=== PATIENT | male | born 1970 | race African-American/Black ===

== ENCOUNTER 2021-12-17 14:21 | Inpatient (IN) | payer BC, OTHER, MEDICAID ==
[~2021-12-17] VITALS: Ht 195.6 cm; Wt 84.6 kg
[2021-12-17 14:34] VITALS: BP_SYST 104
[2021-12-17 15:41] LABS: BILIRUBIN,URINE NEGATIVE (NEGATIVE); BLOOD, URINE 1+ (NEGATIVE); COLOR,URINE YELLOW (YELLOW); GLUCOSE,URINE NEGATIVE (NEGATIVE); KETONES,URINE NEGATIVE (NEGATIVE); NITRITE, URINE NEGATIVE (NEGATIVE); PH,URINE >=9.0 (5.0-8.0); PROTEIN URINE 1+ (NEGATIVE)
[2021-12-17 15:42] LABS: BASOPHILS # (AUTO) 0.1 K/uL (0.0-0.2); BASOPHILS % (AUTO) 0.8 % (0.0-2.0); EOSINOPHILS # (AUTO) 0.4 K/uL (0.0-0.4); HEMOGLOBIN 11.6 g/dL (14.0-18.0); LYMPHOCYTES # (AUTO) 1.6 K/uL (1.0-5.5); LYMPHOCYTES % (AUTO) 18.5 % (20.5-51.5); MEAN CORPUSCULAR HEMOGLOBIN 27 pg (27-31); MEAN CORPUSCULAR HGB CONC 33 % (32-36); MEAN CORPUSCULAR VOLUME 82 fL (79.0-98.0); MONOCYTES # (AUTO) 0.8 K/uL (0.0-1.0); MONOCYTES % (AUTO) 9.6 % (1.7-9.3); NEUTROPHILS # (AUTO) 5.7 K/uL (1.8-7.7); NEUTROPHILS % (AUTO) 66.1 % (40.0-70.0); PLATELET COUNT (AUTO) 279 K/uL (130-430); RED BLOOD CELL COUNT(AUTO) 4.27 MIL/uL (4.2-6.2); RED CELL DISTRIBUTION WIDTH 13.7 % (9.0-15.0); WHITE BLOOD COUNT (AUTO) 8.7 K/uL (4.8-10.8)
[2021-12-17 15:55] LABS: CLARITY/URINE HAZY (CLEAR); LEUKOCYTE ESTERASE ,URINE TRACE (NEGATIVE)
[2021-12-17 15:56] LABS: BARBITURATE, URINE NEGATIVE (NEG <=200); BENZODIAZEPINE, URINE NEGATIVE (NEG <=150); CANNABINOID, URINE NEGATIVE (NEG <=50); COCAINE, URINE NEGATIVE (NEG <=150); METHAMPHETAMINES SCREEN,URINE NEGATIVE (NEG <=500); OPIATE, URINE NEGATIVE (NEG <=100); PHENCYCLIDINE SCREEN,URINE NEGATIVE (NEG <=25); UR TRICYCLIC ANTIDEPRESSANTS NEGATIVE (NEG <=300); URINE AMPHETAMINE NEGATIVE (NEG <=500); URINE METHADONE NEGATIVE (NEG <=200); URINE OXYCODONE SCREEN NEGATIVE (NEG <=100); URINE PROPOXYPHENE SCREEN NEGATIVE (NEG <=300)
[2021-12-17 15:58] LABS: BACTERIA,URINE MODERATE /HPF (None Seen); CALCIUM OXALATE CRYSTALS,UR 0-10 /HPF (None Seen); MUCUS,URINE None Seen /LPF (None Seen); RBC,URINE 0-3 /HPF (0-3); TRIPLE PHOSPHATE CRYSTAL,UR 30-50 /HPF (None Seen)
[2021-12-17 15:59] LABS: CALCIUM 8.9 mg/dL (8.4-11.0); CREATININE 0.91 mg/dL (0.55-1.30); POTASSIUM 4.5 mmol/L (3.5-5.1)
[2021-12-17 16:11] LABS: ALBUMIN 3.2 g/dL (3.4-4.8); TOTAL BILIRUBIN 0.3 mg/dL (0.0-1.0)
[2021-12-17] MEDS ORDERED: cefTRIAXone 1 GM in D5W 50 ML IV ONE (16:30)
[2021-12-17] MEDS ORDERED: ACET-73 PO (16:57)
[2021-12-17] MEDS ORDERED: ALBU2.5V7 INH (16:57)
[2021-12-17] MEDS ORDERED: ASPI-1155 PO (16:57)
[2021-12-17] MEDS ORDERED: POLY119P15 PO (17:24)
[2021-12-17] MEDS ORDERED: INSU100V (17:24)
[2021-12-17] MEDS ORDERED: SENN-234 PO (17:24)
[2021-12-17] MEDS ORDERED: IPRA3AMP19 INH (17:24)
[2021-12-17] MEDS ORDERED: FAMO-268 PO (17:24)
[2021-12-17] MEDS ORDERED: COR25 PO (17:24)
[2021-12-17] MEDS ORDERED: ONDA4TAB11 PO (17:24)
[2021-12-17] MEDS ORDERED: LISI-652 PO (17:24)
[2021-12-17] MEDS ORDERED: LACT10SO66 PO (17:24)
[2021-12-17] MEDS ORDERED: HEPA500015 SQ (17:24)
[2021-12-17] MEDS ORDERED: MULT-300 PO (17:24)
[2021-12-17] MEDS ORDERED: GABA-529 PO (17:24)
[2021-12-17] MEDS ORDERED: METF-380 PO (17:24)
[2021-12-17] MEDS ORDERED: LIP20 PO (17:24)
[2021-12-17] MEDS ORDERED: BISA10SU61 RC (17:24)
[2021-12-17] MEDS ORDERED: LACT1CAP25 PO (17:24)
[2021-12-17] MEDS ORDERED: COLL100 PO (17:24)
[2021-12-17] MEDS ORDERED: CARB15DR88 BOTH EYES (17:24)
[2021-12-17] MEDS ORDERED: DIPH-4 PO (17:24)
[2021-12-17] MEDS ORDERED: MODA200T48 PO (17:24)
[2021-12-17] MEDS ORDERED: LEVE1000 PO (17:24)
[2021-12-17] MEDS ORDERED: INSU100V9 SQ (17:24)
[2021-12-17] MEDS ORDERED: SCOP1PAT TD (17:24)
[2021-12-17] MEDS ORDERED: cefTRIAXone 1 GM VIAL ONE (17:30)
[2021-12-17 18:00] VITALS: BP_SYST 133
[2021-12-17] MEDS ORDERED: D5W 1,000 ML IV PRN ×2 (19:15)
[2021-12-17] MEDS ORDERED: DEXTROSE 50% JECT 50 ML DISP.SYRIN IVP PRN (19:15)
[2021-12-17] MEDS ORDERED: GLUCOSE (DEXTROSE) ORAL GEL -Adults PO PRN ×2 (19:15)
[2021-12-17 20:00] VITALS: BP_SYST 117
[2021-12-17] MEDS ORDERED: cefTRIAXone 1 GM IVPB PREMIX 50 ML IV ONE (22:14)
[2021-12-17] MEDS: levETIRAcetam 500 MG TABLET PO SCH (22:21)
[2021-12-17] MEDS: FAMOTIDINE 20 MG TABLET PO SCH (22:21)
[2021-12-17] MEDS: CARVEDILOL 25 MG TABLET (COREG) PO SCH (22:22)
[2021-12-17] MEDS: HEPARIN SODIUM,PORCINE 5,000 UNITS/ML VIAL SUBCUT SCH (22:50)
[2021-12-18 07:04] LABS: BASOPHILS # (AUTO) 0.1 K/uL (0.0-0.2); EOSINOPHILS # (AUTO) 0.3 K/uL (0.0-0.4); EOSINOPHILS % (AUTO) 3.6 % (0.0-4.0); HEMATOCRIT 35.4 % (36-54); HEMOGLOBIN 11.7 g/dL (14.0-18.0); LYMPHOCYTES # (AUTO) 1.6 K/uL (1.0-5.5); LYMPHOCYTES % (AUTO) 16.7 % (20.5-51.5); MEAN CORPUSCULAR HEMOGLOBIN 27 pg (27-31); MEAN CORPUSCULAR HGB CONC 33 % (32-36); MEAN CORPUSCULAR VOLUME 82 fL (79.0-98.0); MONOCYTES # (AUTO) 0.8 K/uL (0.0-1.0); MONOCYTES % (AUTO) 8.6 % (1.7-9.3); NEUTROPHILS # (AUTO) 6.8 K/uL (1.8-7.7); NEUTROPHILS % (AUTO) 70.1 % (40.0-70.0); PLATELET COUNT (AUTO) 275 K/uL (130-430); RED BLOOD CELL COUNT(AUTO) 4.31 MIL/uL (4.2-6.2); WHITE BLOOD COUNT (AUTO) 9.8 K/uL (4.8-10.8)
[2021-12-18 07:34] LABS: CALCIUM 9.1 mg/dL (8.4-11.0); CREATININE 0.86 mg/dL (0.55-1.30); PHOSPHORUS 4.2 mg/dL (2.7-4.5); POTASSIUM 4.4 mmol/L (3.5-5.1)
[2021-12-18 08:00] VITALS: BP_SYST 138
[2021-12-18] MEDS: ASPIRIN 81 MG TAB.CHEW PO SCH (10:24)
[2021-12-18] MEDS: MODAFINIL 100 MG TABLET (PROVIGIL) PO SCH (10:24)
[2021-12-18] MEDS: levETIRAcetam 500 MG TABLET PO SCH ×2 (10:24→22:09)
[2021-12-18] MEDS: FAMOTIDINE 20 MG TABLET PO SCH ×2 (10:25→22:09)
[2021-12-18] MEDS: CARVEDILOL 25 MG TABLET (COREG) PO SCH ×2 (10:25→22:09)
[2021-12-18] MEDS: ATORVASTATIN 20 MG TABLET PO SCH (10:25)
[2021-12-18] MEDS: HEPARIN SODIUM,PORCINE 5,000 UNITS/ML VIAL SUBCUT SCH ×2 (10:31→22:11)
[2021-12-18 12:25] VITALS: BP_SYST 131
[2021-12-18] MEDS: SCOPOLAMINE HYDROBROMIDE 1 MG PATCH .72 H (TRANSDERM-SCOP) TD SCH (12:30)
[2021-12-18] MEDS: ONDANSETRON HCL 4 MG/2 ML VIAL IVP PRN (17:29)
[2021-12-18] MEDS: cefTRIAXone 1 GM in D5W 50 ML IV SCH (17:30)
[2021-12-18 17:42] VITALS: BP_SYST 132
[2021-12-18 20:00] VITALS: BP_SYST 120
[2021-12-19] VITALS: BP_SYST 108
[2021-12-19 06:43] LABS: EOSINOPHILS # (AUTO) 0.3 K/uL (0.0-0.4); EOSINOPHILS % (AUTO) 3.6 % (0.0-4.0); HEMATOCRIT 34.5 % (36-54); HEMOGLOBIN 11.2 g/dL (14.0-18.0); LYMPHOCYTES # (AUTO) 1.8 K/uL (1.0-5.5); LYMPHOCYTES % (AUTO) 22.6 % (20.5-51.5); MEAN CORPUSCULAR HEMOGLOBIN 27 pg (27-31); MEAN CORPUSCULAR HGB CONC 33 % (32-36); MEAN CORPUSCULAR VOLUME 83 fL (79.0-98.0); MONOCYTES # (AUTO) 0.8 K/uL (0.0-1.0); MONOCYTES % (AUTO) 10.4 % (1.7-9.3); PLATELET COUNT (AUTO) 297 K/uL (130-430); RED BLOOD CELL COUNT(AUTO) 4.16 MIL/uL (4.2-6.2); RED CELL DISTRIBUTION WIDTH 14.3 % (9.0-15.0); WHITE BLOOD COUNT (AUTO) 7.9 K/uL (4.8-10.8)
[2021-12-19 07:19] LABS: ALBUMIN 3.2 g/dL (3.4-4.8); CALCIUM 9.2 mg/dL (8.4-11.0); CREATININE 0.95 mg/dL (0.55-1.30); POTASSIUM 3.9 mmol/L (3.5-5.1); THYROID STIMULATING HORMONE 0.09 uIu/mL (0.36-3.74); TOTAL BILIRUBIN 0.2 mg/dL (0.0-1.0)
[2021-12-19 08:00] VITALS: BP_SYST 127
[2021-12-19 08:29] LABS: BASOPHILS % (AUTO) 0.2 % (0.0-2.0); NEUTROPHILS % (AUTO) 63.2 % (40.0-70.0)
[2021-12-19] MEDS: MODAFINIL 100 MG TABLET (PROVIGIL) PO SCH (09:00)
[2021-12-19] MEDS: HEPARIN SODIUM,PORCINE 5,000 UNITS/ML VIAL SUBCUT SCH ×2 (09:00→21:31)
[2021-12-19] MEDS: ATORVASTATIN 20 MG TABLET PO SCH (09:00)
[2021-12-19] MEDS: ASPIRIN 81 MG TAB.CHEW PO SCH (09:00)
[2021-12-19] MEDS: CARVEDILOL 25 MG TABLET (COREG) PO SCH ×2 (09:00→21:26)
[2021-12-19] MEDS: FAMOTIDINE 20 MG TABLET PO SCH ×2 (09:00→21:26)
[2021-12-19] MEDS: levETIRAcetam 500 MG TABLET PO SCH ×2 (09:00→21:26)
[2021-12-19 12:00] VITALS: BP_SYST 119
[2021-12-19 16:00] VITALS: BP_SYST 121
[2021-12-19] MEDS: cefTRIAXone 1 GM in D5W 50 ML IV SCH (17:34)
[2021-12-19 20:00] VITALS: BP_SYST 122
[2021-12-19] MEDS: HALOPERIDOL 1 MG TABLET (HALDOL) PO PRN (21:25)
[2021-12-20] VITALS: BP_SYST 106
[2021-12-20 08:20] VITALS: BP_SYST 121
[2021-12-20] MEDS: ASPIRIN 81 MG TAB.CHEW PO SCH (09:15)
[2021-12-20] MEDS: MODAFINIL 100 MG TABLET (PROVIGIL) PO SCH (09:15)
[2021-12-20] MEDS: ATORVASTATIN 20 MG TABLET PO SCH (09:16)
[2021-12-20] MEDS: CARVEDILOL 25 MG TABLET (COREG) PO SCH ×2 (09:16→20:48)
[2021-12-20] MEDS: levETIRAcetam 500 MG TABLET PO SCH ×2 (09:16→20:48)
[2021-12-20] MEDS: FAMOTIDINE 20 MG TABLET PO SCH ×2 (09:16→20:48)
[2021-12-20] MEDS: HEPARIN SODIUM,PORCINE 5,000 UNITS/ML VIAL SUBCUT SCH ×2 (09:19→20:51)
[2021-12-20 11:04] LABS: EOSINOPHILS # (AUTO) 0.5 K/uL (0.0-0.4)
[2021-12-20 11:15] LABS: BASOPHILS # (AUTO) 0.1 K/uL (0.0-0.2); BASOPHILS % (AUTO) 0.9 % (0.0-2.0); EOSINOPHILS % (AUTO) 6.3 % (0.0-4.0); HEMATOCRIT 36.6 % (36-54); HEMOGLOBIN 12.2 g/dL (14.0-18.0); LYMPHOCYTES # (AUTO) 1.7 K/uL (1.0-5.5); LYMPHOCYTES % (AUTO) 21.1 % (20.5-51.5); MEAN CORPUSCULAR HEMOGLOBIN 28 pg (27-31); MEAN CORPUSCULAR HGB CONC 33 % (32-36); MEAN CORPUSCULAR VOLUME 82 fL (79.0-98.0); MONOCYTES # (AUTO) 0.7 K/uL (0.0-1.0); MONOCYTES % (AUTO) 9.3 % (1.7-9.3); NEUTROPHILS # (AUTO) 4.9 K/uL (1.8-7.7); NEUTROPHILS % (AUTO) 62.4 % (40.0-70.0); PLATELET COUNT (AUTO) 290 K/uL (130-430); RED BLOOD CELL COUNT(AUTO) 4.44 MIL/uL (4.2-6.2); RED CELL DISTRIBUTION WIDTH 14.1 % (9.0-15.0); WHITE BLOOD COUNT (AUTO) 7.9 K/uL (4.8-10.8)
[2021-12-20 11:17] LABS: CALCIUM 9.1 mg/dL (8.4-11.0); CREATININE 0.97 mg/dL (0.55-1.30); PHOSPHORUS 3.8 mg/dL (2.7-4.5); POTASSIUM 3.8 mmol/L (3.5-5.1)
[2021-12-20] MEDS: levoFLOXacin 500 MG TABLET PO SCH (11:37)
[2021-12-20 12:01] VITALS: BP_SYST 138
[2021-12-20 16:15] VITALS: BP_SYST 130
[2021-12-20] MEDS: INSULIN LISPRO SLIDING SCALE 100 UNITS/ML VIAL (humaLOG) SUBCUT PRN (21:11)
[2021-12-21 01:22] VITALS: BP_SYST 110
[2021-12-21 08:15] VITALS: BP_SYST 131
[2021-12-21] MEDS: FAMOTIDINE 20 MG TABLET PO SCH ×2 (08:55→20:51)
[2021-12-21] MEDS: CARVEDILOL 25 MG TABLET (COREG) PO SCH ×2 (08:55→20:50)
[2021-12-21] MEDS: MODAFINIL 100 MG TABLET (PROVIGIL) PO SCH (08:59)
[2021-12-21] MEDS: ASPIRIN 81 MG TAB.CHEW PO SCH (09:00)
[2021-12-21] MEDS: levETIRAcetam 500 MG TABLET PO SCH ×2 (09:00→20:50)
[2021-12-21] MEDS: ATORVASTATIN 20 MG TABLET PO SCH (09:00)
[2021-12-21] MEDS: HEPARIN SODIUM,PORCINE 5,000 UNITS/ML VIAL SUBCUT SCH ×2 (09:03→20:55)
[2021-12-21] MEDS: levoFLOXacin 500 MG TABLET PO SCH (09:04)
[2021-12-21] MEDS: SCOPOLAMINE HYDROBROMIDE 1 MG PATCH .72 H (TRANSDERM-SCOP) TD SCH (11:09)
[2021-12-21 12:26] VITALS: BP_SYST 120
[2021-12-21 16:02] VITALS: BP_SYST 141
[2021-12-21 20:00] VITALS: BP_SYST 138
[2021-12-21] MEDS: HALOPERIDOL 1 MG TABLET (HALDOL) PO PRN (21:15)
[2021-12-22 02:00] VITALS: BP_SYST 124
[2021-12-22 08:00] VITALS: BP_SYST 127
[2021-12-22] MEDS: MODAFINIL 100 MG TABLET (PROVIGIL) PO SCH (09:13)
[2021-12-22] MEDS: levETIRAcetam 500 MG TABLET PO SCH ×2 (09:13→21:00)
[2021-12-22] MEDS: levoFLOXacin 500 MG TABLET PO SCH (09:13)
[2021-12-22] MEDS: ASPIRIN 81 MG TAB.CHEW PO SCH (09:13)
[2021-12-22] MEDS: ATORVASTATIN 20 MG TABLET PO SCH (09:14)
[2021-12-22] MEDS: CARVEDILOL 25 MG TABLET (COREG) PO SCH ×2 (09:14→21:00)
[2021-12-22] MEDS: FAMOTIDINE 20 MG TABLET PO SCH ×2 (09:14→21:00)
[2021-12-22] MEDS: HEPARIN SODIUM,PORCINE 5,000 UNITS/ML VIAL SUBCUT SCH (09:16)
[2021-12-22] MEDS: INSULIN LISPRO SLIDING SCALE 100 UNITS/ML VIAL (humaLOG) SUBCUT PRN ×2 (12:15→23:13)
[2021-12-22 15:58] VITALS: BP_SYST 127
[2021-12-22 20:00] VITALS: BP_SYST 135
[2021-12-23] MEDS ORDERED: SCOPOLAMINE HYDROBROMIDE 1 MG PATCH .72 H (TRANSDERM-SCOP) TD SCH (08:55)
[2021-12-23] MEDS: MODAFINIL 100 MG TABLET (PROVIGIL) PO SCH (09:59)
[2021-12-23] MEDS: CARVEDILOL 25 MG TABLET (COREG) PO SCH ×2 (10:00→22:47)
[2021-12-23] MEDS: FAMOTIDINE 20 MG TABLET PO SCH ×2 (10:00→22:31)
[2021-12-23] MEDS: levoFLOXacin 500 MG TABLET PO SCH (10:01)
[2021-12-23] MEDS: ASPIRIN 81 MG TAB.CHEW PO SCH (10:01)
[2021-12-23] MEDS: ATORVASTATIN 20 MG TABLET PO SCH (10:01)
[2021-12-23] MEDS: levETIRAcetam 500 MG TABLET PO SCH ×2 (10:01→22:32)
[2021-12-23] MEDS: HEPARIN SODIUM,PORCINE 5,000 UNITS/ML VIAL SUBCUT SCH ×2 (10:04→22:35)
[2021-12-23 12:57] VITALS: BP_SYST 132
[2021-12-23 16:13] VITALS: BP_SYST 133
[2021-12-23 20:00] VITALS: BP_SYST 114
[2021-12-23] MEDS: HALOPERIDOL 1 MG TABLET (HALDOL) PO PRN (22:31)
[2021-12-24 00:21] VITALS: BP_SYST 128
[2021-12-24 08:39] VITALS: BP_SYST 112
[2021-12-24] MEDS: SCOPOLAMINE HYDROBROMIDE 1 MG PATCH .72 H (TRANSDERM-SCOP) TD SCH (09:38)
[2021-12-24] MEDS: MODAFINIL 100 MG TABLET (PROVIGIL) PO SCH (09:38)
[2021-12-24] MEDS: ASPIRIN 81 MG TAB.CHEW PO SCH (09:38)
[2021-12-24] MEDS: levoFLOXacin 500 MG TABLET PO SCH (09:39)
[2021-12-24] MEDS: CARVEDILOL 25 MG TABLET (COREG) PO SCH ×2 (09:39→21:04)
[2021-12-24] MEDS: levETIRAcetam 500 MG TABLET PO SCH ×2 (09:40→21:04)
[2021-12-24] MEDS: FAMOTIDINE 20 MG TABLET PO SCH (09:42)
[2021-12-24] MEDS: ATORVASTATIN 20 MG TABLET PO SCH (09:47)
[2021-12-24] MEDS: HEPARIN SODIUM,PORCINE 5,000 UNITS/ML VIAL SUBCUT SCH ×2 (09:50→21:23)
[2021-12-24 12:00] VITALS: BP_SYST 121
[2021-12-24 16:00] VITALS: BP_SYST 122
[2021-12-24] MEDS: PANTOPRAZOLE SODIUM 40 MG TAB PO SCH (21:04)
[2021-12-24 21:06] VITALS: BP_SYST 115
[2021-12-24] MEDS: INSULIN LISPRO SLIDING SCALE 100 UNITS/ML VIAL (humaLOG) SUBCUT PRN (21:16)
[2021-12-25 00:17] VITALS: BP_SYST 120
[2021-12-25 08:03] VITALS: BP_SYST 118
[2021-12-25] MEDS: CARVEDILOL 25 MG TABLET (COREG) PO SCH ×2 (09:12→21:03)
[2021-12-25] MEDS: PANTOPRAZOLE SODIUM 40 MG TAB PO SCH ×2 (09:12→21:02)
[2021-12-25] MEDS: levETIRAcetam 500 MG TABLET PO SCH ×2 (09:12→21:01)
[2021-12-25] MEDS: MODAFINIL 100 MG TABLET (PROVIGIL) PO SCH (09:12)
[2021-12-25] MEDS: ASPIRIN 81 MG TAB.CHEW PO SCH (09:12)
[2021-12-25] MEDS: ATORVASTATIN 20 MG TABLET PO SCH (09:12)
[2021-12-25] MEDS: HEPARIN SODIUM,PORCINE 5,000 UNITS/ML VIAL SUBCUT SCH ×2 (09:16→21:28)
[2021-12-25] MEDS: levoFLOXacin 500 MG TABLET PO SCH (09:17)
[2021-12-25 12:59] VITALS: BP_SYST 114
[2021-12-25 17:39] VITALS: BP_SYST 113
[2021-12-25 20:59] VITALS: BP_SYST 129
[2021-12-26 01:22] VITALS: BP_SYST 124
[2021-12-26 07:30] VITALS: BP_SYST 133
[2021-12-26] MEDS: MODAFINIL 100 MG TABLET (PROVIGIL) PO SCH (08:43)
[2021-12-26] MEDS: levETIRAcetam 500 MG TABLET PO SCH ×2 (08:43→22:20)
[2021-12-26] MEDS: PANTOPRAZOLE SODIUM 40 MG TAB PO SCH ×2 (08:43→22:21)
[2021-12-26] MEDS: ASPIRIN 81 MG TAB.CHEW PO SCH (08:44)
[2021-12-26] MEDS: CARVEDILOL 25 MG TABLET (COREG) PO SCH ×2 (08:45→22:40)
[2021-12-26] MEDS: ATORVASTATIN 20 MG TABLET PO SCH (08:45)
[2021-12-26] MEDS: HEPARIN SODIUM,PORCINE 5,000 UNITS/ML VIAL SUBCUT SCH ×2 (08:50→22:20)
[2021-12-26] MEDS: levoFLOXacin 500 MG TABLET PO SCH (09:04)
[2021-12-26 12:30] VITALS: BP_SYST 120
[2021-12-26 16:22] VITALS: BP_SYST 111
[2021-12-26 20:00] VITALS: BP_SYST 117
[2021-12-27 01:47] VITALS: BP_SYST 109
[2021-12-27] MEDS: ASPIRIN 81 MG TAB.CHEW PO SCH (09:00)
[2021-12-27] MEDS: MODAFINIL 100 MG TABLET (PROVIGIL) PO SCH (09:00)
[2021-12-27] MEDS: levETIRAcetam 500 MG TABLET PO SCH ×2 (09:01→21:17)
[2021-12-27] MEDS: ATORVASTATIN 20 MG TABLET PO SCH (09:03)
[2021-12-27] MEDS: CARVEDILOL 25 MG TABLET (COREG) PO SCH ×2 (09:03→21:18)
[2021-12-27] MEDS: PANTOPRAZOLE SODIUM 40 MG TAB PO SCH ×2 (09:03→21:18)
[2021-12-27] MEDS: HEPARIN SODIUM,PORCINE 5,000 UNITS/ML VIAL SUBCUT SCH ×2 (09:05→21:21)
[2021-12-27 09:07] VITALS: BP_SYST 128
[2021-12-27] MEDS: SCOPOLAMINE HYDROBROMIDE 1 MG PATCH .72 H (TRANSDERM-SCOP) TD SCH (09:17)
[2021-12-27 11:11] VITALS: BP_SYST 112
[2021-12-27] MEDS: INSULIN LISPRO SLIDING SCALE 100 UNITS/ML VIAL (humaLOG) SUBCUT PRN (14:31)
[2021-12-27 16:01] VITALS: BP_SYST 117
[2021-12-27 23:14] VITALS: BP_SYST 120
[2021-12-28 00:21] VITALS: BP_SYST 122
[2021-12-28] MEDS: MODAFINIL 100 MG TABLET (PROVIGIL) PO SCH (10:10)
[2021-12-28] MEDS: ATORVASTATIN 20 MG TABLET PO SCH (10:10)
[2021-12-28] MEDS: ASPIRIN 81 MG TAB.CHEW PO SCH (10:10)
[2021-12-28] MEDS: levETIRAcetam 500 MG TABLET PO SCH ×2 (10:11→20:27)
[2021-12-28] MEDS: HALOPERIDOL 1 MG TABLET (HALDOL) PO PRN (10:11)
[2021-12-28] MEDS: PANTOPRAZOLE SODIUM 40 MG TAB PO SCH ×2 (10:12→20:27)
[2021-12-28] MEDS: CARVEDILOL 25 MG TABLET (COREG) PO SCH ×2 (10:12→20:27)
[2021-12-28] MEDS: HEPARIN SODIUM,PORCINE 5,000 UNITS/ML VIAL SUBCUT SCH ×2 (10:24→20:30)
[2021-12-28] MEDS ORDERED: HALOPERIDOL 1 MG TABLET (HALDOL) PO ONE (10:45)
[2021-12-28 11:38] VITALS: BP_SYST 120
[2021-12-28 15:27] VITALS: BP_SYST 150
[2021-12-28 20:00] VITALS: BP_SYST 146
[2021-12-29 00:24] VITALS: BP_SYST 118
[2021-12-29] MEDS: PANTOPRAZOLE SODIUM 40 MG TAB PO SCH ×2 (10:21→20:56)
[2021-12-29] MEDS: CARVEDILOL 25 MG TABLET (COREG) PO SCH ×2 (10:21→20:56)
[2021-12-29] MEDS: MODAFINIL 100 MG TABLET (PROVIGIL) PO SCH (10:22)
[2021-12-29] MEDS: levETIRAcetam 500 MG TABLET PO SCH ×2 (10:22→20:56)
[2021-12-29] MEDS: HALOPERIDOL 1 MG TABLET (HALDOL) PO SCH ×2 (10:22→20:56)
[2021-12-29] MEDS: ASPIRIN 81 MG TAB.CHEW PO SCH (10:22)
[2021-12-29] MEDS: ATORVASTATIN 20 MG TABLET PO SCH (10:23)
[2021-12-29] MEDS: HEPARIN SODIUM,PORCINE 5,000 UNITS/ML VIAL SUBCUT SCH ×2 (10:25→20:58)
[2021-12-29 12:00] VITALS: BP_SYST 119
[2021-12-29] MEDS: INSULIN LISPRO SLIDING SCALE 100 UNITS/ML VIAL (humaLOG) SUBCUT PRN (12:54)
[2021-12-29 15:34] VITALS: BP_SYST 151
[2021-12-29 15:38] VITALS: BP_SYST 110
[2021-12-29 20:39] VITALS: BP_SYST 128
[2021-12-30 00:43] VITALS: BP_SYST 112
[2021-12-30] MEDS: INSULIN LISPRO SLIDING SCALE 100 UNITS/ML VIAL (humaLOG) SUBCUT PRN ×2 (06:05→21:41)
[2021-12-30 08:00] VITALS: BP_SYST 125
[2021-12-30] MEDS: levETIRAcetam 500 MG TABLET PO SCH ×2 (08:57→21:08)
[2021-12-30] MEDS: PANTOPRAZOLE SODIUM 40 MG TAB PO SCH ×2 (08:57→21:08)
[2021-12-30] MEDS: ASPIRIN 81 MG TAB.CHEW PO SCH (08:57)
[2021-12-30] MEDS: MODAFINIL 100 MG TABLET (PROVIGIL) PO SCH (08:57)
[2021-12-30] MEDS: CARVEDILOL 25 MG TABLET (COREG) PO SCH ×2 (08:58→21:09)
[2021-12-30] MEDS: HALOPERIDOL 1 MG TABLET (HALDOL) PO SCH ×2 (08:58→21:08)
[2021-12-30] MEDS: ATORVASTATIN 20 MG TABLET PO SCH (08:58)
[2021-12-30] MEDS: SCOPOLAMINE HYDROBROMIDE 1 MG PATCH .72 H (TRANSDERM-SCOP) TD SCH (08:59)
[2021-12-30] MEDS: HEPARIN SODIUM,PORCINE 5,000 UNITS/ML VIAL SUBCUT SCH ×2 (09:15→21:12)
[2021-12-30 12:09] VITALS: BP_SYST 113
[2021-12-30 17:50] VITALS: BP_SYST 118
[2021-12-30 20:00] VITALS: BP_SYST 113
[2021-12-31 01:17] VITALS: BP_SYST 106
[2021-12-31] MEDS: INSULIN LISPRO SLIDING SCALE 100 UNITS/ML VIAL (humaLOG) SUBCUT PRN ×2 (06:19→12:46)
[2021-12-31 07:04] LABS: BASOPHILS # (AUTO) 0.1 K/uL (0.0-0.2); BASOPHILS % (AUTO) 1.1 % (0.0-2.0); EOSINOPHILS # (AUTO) 0.6 K/uL (0.0-0.4); EOSINOPHILS % (AUTO) 7.6 % (0.0-4.0); HEMATOCRIT 38.4 % (36-54); HEMOGLOBIN 12.5 g/dL (14.0-18.0); LYMPHOCYTES # (AUTO) 2.1 K/uL (1.0-5.5); LYMPHOCYTES % (AUTO) 27.5 % (20.5-51.5); MEAN CORPUSCULAR HEMOGLOBIN 27 pg (27-31); MEAN CORPUSCULAR HGB CONC 33 % (32-36); MEAN CORPUSCULAR VOLUME 83 fL (79.0-98.0); MONOCYTES # (AUTO) 1.1 K/uL (0.0-1.0); MONOCYTES % (AUTO) 14.5 % (1.7-9.3); NEUTROPHILS # (AUTO) 3.8 K/uL (1.8-7.7); NEUTROPHILS % (AUTO) 49.3 % (40.0-70.0); PLATELET COUNT (AUTO) 245 K/uL (130-430); RED BLOOD CELL COUNT(AUTO) 4.62 MIL/uL (4.2-6.2); RED CELL DISTRIBUTION WIDTH 14.2 % (9.0-15.0); WHITE BLOOD COUNT (AUTO) 7.7 K/uL (4.8-10.8)
[2021-12-31 07:33] LABS: CREATININE 1.1 mg/dL (0.55-1.30); POTASSIUM 3.6 mmol/L (3.5-5.1)
[2021-12-31 08:00] VITALS: BP_SYST 111
[2021-12-31] MEDS ORDERED: HYDR-3917 PO (08:22)
[2021-12-31] MEDS: ATORVASTATIN 20 MG TABLET PO SCH (10:02)
[2021-12-31] MEDS: PANTOPRAZOLE SODIUM 40 MG TAB PO SCH ×2 (10:02→20:56)
[2021-12-31] MEDS: ASPIRIN 81 MG TAB.CHEW PO SCH (10:02)
[2021-12-31] MEDS: MODAFINIL 100 MG TABLET (PROVIGIL) PO SCH (10:03)
[2021-12-31] MEDS: CARVEDILOL 25 MG TABLET (COREG) PO SCH ×2 (10:04→20:56)
[2021-12-31] MEDS: HALOPERIDOL 1 MG TABLET (HALDOL) PO SCH ×2 (10:04→20:56)
[2021-12-31] MEDS: levETIRAcetam 500 MG TABLET PO SCH ×2 (10:05→20:56)
[2021-12-31] MEDS: HEPARIN SODIUM,PORCINE 5,000 UNITS/ML VIAL SUBCUT SCH ×2 (10:20→20:59)
[2021-12-31 12:55] VITALS: BP_SYST 109
[2021-12-31 16:00] VITALS: BP_SYST 110
[2022-01-01 00:30] VITALS: BP_SYST 110
[2022-01-01] MEDS: INSULIN LISPRO SLIDING SCALE 100 UNITS/ML VIAL (humaLOG) SUBCUT PRN (06:23)
[2022-01-01 08:00] VITALS: BP_SYST 111
[2022-01-01] MEDS ORDERED: PANTOPRAZOLE SODIUM 40 MG/VIAL (PROTONIX) IVP ONE (10:00)
[2022-01-01] MEDS ORDERED: ATORVASTATIN 20 MG TABLET GT ONE (10:00)
[2022-01-01] MEDS ORDERED: HALOPERIDOL 1 MG TABLET (HALDOL) GT ONE (10:00)
[2022-01-01] MEDS ORDERED: ASPIRIN 81 MG TAB.CHEW GT ONE (10:00)
[2022-01-01] MEDS ORDERED: levETIRAcetam 500 MG TABLET GT ONE (10:00)
[2022-01-01] MEDS ORDERED: CARVEDILOL 25 MG TABLET (COREG) GT ONE (10:00)
[2022-01-01] MEDS ORDERED: MODAFINIL 100 MG TABLET (PROVIGIL) GT ONE (10:15)
[2022-01-01] MEDS: HEPARIN SODIUM,PORCINE 5,000 UNITS/ML VIAL SUBCUT SCH ×2 (10:48→21:44)
[2022-01-01 12:31] VITALS: BP_SYST 116
[2022-01-01 16:47] VITALS: BP_SYST 119
[2022-01-01] MEDS ORDERED: HALOPERIDOL 1 MG TABLET (HALDOL) GT SCH (21:00)
[2022-01-01] MEDS ORDERED: CARVEDILOL 25 MG TABLET (COREG) GT SCH (21:00)
[2022-01-01] MEDS ORDERED: levETIRAcetam 500 MG TABLET GT SCH (21:00)
[2022-01-01] MEDS: HALOPERIDOL 1 MG TABLET (HALDOL) GT SCH (21:40)
[2022-01-01] MEDS: PANTOPRAZOLE SODIUM 40 MG/VIAL (PROTONIX) IVP SCH (21:41)
[2022-01-01] MEDS: CARVEDILOL 25 MG TABLET (COREG) GT SCH (21:41)
[2022-01-01] MEDS: levETIRAcetam 500 MG TABLET GT SCH (21:41)
[2022-01-01 22:59] VITALS: BP_SYST 113
[2022-01-02 03:06] VITALS: BP_SYST 109
[2022-01-02] MEDS: INSULIN LISPRO SLIDING SCALE 100 UNITS/ML VIAL (humaLOG) SUBCUT PRN ×2 (06:34→11:41)
[2022-01-02 06:37] LABS: CREATININE 0.98 mg/dL (0.55-1.30); POTASSIUM 3.6 mmol/L (3.5-5.1)
[2022-01-02] MEDS ORDERED: ASPIRIN 81 MG TAB.CHEW GT SCH (09:00)
[2022-01-02] MEDS ORDERED: ATORVASTATIN 20 MG TABLET GT SCH (09:00)
[2022-01-02] MEDS: HALOPERIDOL 1 MG TABLET (HALDOL) GT SCH ×2 (09:00→20:42)
[2022-01-02] MEDS: ASPIRIN 81 MG TAB.CHEW GT SCH (09:36)
[2022-01-02] MEDS: MODAFINIL 100 MG TABLET (PROVIGIL) GT SCH (09:36)
[2022-01-02] MEDS: levETIRAcetam 500 MG TABLET GT SCH ×2 (09:37→20:42)
[2022-01-02] MEDS: CARVEDILOL 25 MG TABLET (COREG) GT SCH ×2 (09:38→20:41)
[2022-01-02] MEDS: PANTOPRAZOLE SODIUM 40 MG/VIAL (PROTONIX) IVP SCH ×2 (09:38→20:42)
[2022-01-02] MEDS: ATORVASTATIN 20 MG TABLET GT SCH (09:38)
[2022-01-02] MEDS: SCOPOLAMINE HYDROBROMIDE 1 MG PATCH .72 H (TRANSDERM-SCOP) TD SCH (09:39)
[2022-01-02] MEDS: HEPARIN SODIUM,PORCINE 5,000 UNITS/ML VIAL SUBCUT SCH ×2 (09:45→20:44)
[2022-01-02 10:53] VITALS: BP_SYST 110
[2022-01-02 12:36] VITALS: BP_SYST 109
[2022-01-02 16:50] VITALS: BP_SYST 112
[2022-01-02 19:00] VITALS: BP_SYST 136
[2022-01-02 20:00] VITALS: BP_SYST 136
[2022-01-03 01:31] VITALS: BP_SYST 122
[2022-01-03 08:15] VITALS: BP_SYST 116
[2022-01-03] MEDS: ASPIRIN 81 MG TAB.CHEW GT SCH (09:21)
[2022-01-03] MEDS: MODAFINIL 100 MG TABLET (PROVIGIL) GT SCH (09:22)
[2022-01-03] MEDS: HALOPERIDOL 1 MG TABLET (HALDOL) GT SCH ×2 (09:22→22:14)
[2022-01-03] MEDS: CARVEDILOL 25 MG TABLET (COREG) GT SCH ×2 (09:23→22:15)
[2022-01-03] MEDS: ATORVASTATIN 20 MG TABLET GT SCH (09:23)
[2022-01-03] MEDS: levETIRAcetam 500 MG TABLET GT SCH ×2 (09:23→22:14)
[2022-01-03] MEDS: PANTOPRAZOLE SODIUM 40 MG/VIAL (PROTONIX) IVP SCH ×2 (09:24→22:15)
[2022-01-03] MEDS: HEPARIN SODIUM,PORCINE 5,000 UNITS/ML VIAL SUBCUT SCH ×2 (09:25→22:17)
[2022-01-03 12:00] VITALS: BP_SYST 112
[2022-01-03 16:37] VITALS: BP_SYST 119
[2022-01-03] MEDS: INSULIN LISPRO SLIDING SCALE 100 UNITS/ML VIAL (humaLOG) SUBCUT PRN ×2 (17:03→22:22)
[2022-01-03 21:25] VITALS: BP_SYST 117
[2022-01-04 06:51] LABS: CALCIUM 10.8 mg/dL (8.4-11.0); CREATININE 0.99 mg/dL (0.55-1.30); POTASSIUM 4.1 mmol/L (3.5-5.1)
[2022-01-04 08:00] VITALS: BP_SYST 116
[2022-01-04] MEDS: PANTOPRAZOLE SODIUM 40 MG/VIAL (PROTONIX) IVP SCH ×2 (08:42→21:33)
[2022-01-04] MEDS: HEPARIN SODIUM,PORCINE 5,000 UNITS/ML VIAL SUBCUT SCH ×2 (08:45→21:50)
[2022-01-04] MEDS: ASPIRIN 81 MG TAB.CHEW GT SCH (08:48)
[2022-01-04] MEDS: ATORVASTATIN 20 MG TABLET GT SCH (08:49)
[2022-01-04] MEDS: MODAFINIL 100 MG TABLET (PROVIGIL) GT SCH (08:49)
[2022-01-04] MEDS: levETIRAcetam 500 MG TABLET GT SCH ×2 (08:49→21:47)
[2022-01-04] MEDS: CARVEDILOL 25 MG TABLET (COREG) GT SCH ×2 (08:50→21:47)
[2022-01-04] MEDS: HALOPERIDOL 1 MG TABLET (HALDOL) GT SCH ×2 (08:51→21:47)
[2022-01-04 12:00] VITALS: BP_SYST 118
[2022-01-04] MEDS: INSULIN LISPRO SLIDING SCALE 100 UNITS/ML VIAL (humaLOG) SUBCUT PRN ×3 (12:40→21:58)
[2022-01-04 13:28] VITALS: BP_SYST 116
[2022-01-04 15:29] VITALS: BP_SYST 105
[2022-01-04 20:00] VITALS: BP_SYST 106
[2022-01-05 01:36] VITALS: BP_SYST 119
[2022-01-05 08:00] VITALS: BP_SYST 103
[2022-01-05] MEDS: CARVEDILOL 25 MG TABLET (COREG) GT SCH ×2 (09:00→21:43)
[2022-01-05] MEDS: SCOPOLAMINE HYDROBROMIDE 1 MG PATCH .72 H (TRANSDERM-SCOP) TD SCH (09:37)
[2022-01-05] MEDS: MODAFINIL 100 MG TABLET (PROVIGIL) GT SCH (09:37)
[2022-01-05] MEDS: ASPIRIN 81 MG TAB.CHEW GT SCH (09:37)
[2022-01-05] MEDS: ATORVASTATIN 20 MG TABLET GT SCH (09:37)
[2022-01-05] MEDS: levETIRAcetam 500 MG TABLET GT SCH ×2 (09:37→21:42)
[2022-01-05] MEDS: HEPARIN SODIUM,PORCINE 5,000 UNITS/ML VIAL SUBCUT SCH ×2 (10:04→21:44)
[2022-01-05] MEDS: PANTOPRAZOLE SODIUM 40 MG/VIAL (PROTONIX) IVP SCH ×2 (11:14→21:42)
[2022-01-05 11:24] VITALS: BP_SYST 121
[2022-01-05] MEDS: IPRATROPIUM/ALBUTEROL SULFATE 3 ML AMPUL.NEB (DUONEB) INH PRN (13:37)
[2022-01-05 15:27] VITALS: BP_SYST 111
[2022-01-05] MEDS: INSULIN LISPRO SLIDING SCALE 100 UNITS/ML VIAL (humaLOG) SUBCUT PRN ×2 (17:22→21:59)
[2022-01-05 20:55] VITALS: BP_SYST 114
[2022-01-05] MEDS: HALOPERIDOL 1 MG TABLET (HALDOL) GT SCH (21:42)
[2022-01-06] VITALS (7 sets, daily range): BP systolic 107–132
[2022-01-06] MEDS: CARVEDILOL 25 MG TABLET (COREG) GT SCH ×2 (09:00→22:40)
[2022-01-06] MEDS: PANTOPRAZOLE SODIUM 40 MG/VIAL (PROTONIX) IVP SCH ×2 (11:30→22:16)
[2022-01-06] MEDS: ASPIRIN 81 MG TAB.CHEW GT SCH (11:31)
[2022-01-06] MEDS: levETIRAcetam 500 MG TABLET GT SCH ×2 (11:32→22:16)
[2022-01-06] MEDS: ATORVASTATIN 20 MG TABLET GT SCH (11:33)
[2022-01-06] MEDS: MODAFINIL 100 MG TABLET (PROVIGIL) GT SCH (11:33)
[2022-01-06] MEDS: HEPARIN SODIUM,PORCINE 5,000 UNITS/ML VIAL SUBCUT SCH ×2 (11:38→22:19)
[2022-01-06] MEDS: IPRATROPIUM/ALBUTEROL SULFATE 3 ML AMPUL.NEB (DUONEB) INH PRN (14:49)
[2022-01-06] MEDS: HALOPERIDOL 1 MG TABLET (HALDOL) GT SCH (22:16)
[2022-01-07 00:50] VITALS: BP_SYST 113
[2022-01-07] MEDS: INSULIN LISPRO SLIDING SCALE 100 UNITS/ML VIAL (humaLOG) SUBCUT PRN ×2 (06:36→13:35)
[2022-01-07 08:00] VITALS: BP_SYST 119
[2022-01-07] MEDS: MODAFINIL 100 MG TABLET (PROVIGIL) GT SCH (09:28)
[2022-01-07] MEDS: PANTOPRAZOLE SODIUM 40 MG/VIAL (PROTONIX) IVP SCH ×2 (09:28→22:58)
[2022-01-07] MEDS: ATORVASTATIN 20 MG TABLET GT SCH (09:28)
[2022-01-07] MEDS: levETIRAcetam 500 MG TABLET GT SCH ×2 (09:29→22:58)
[2022-01-07] MEDS: CARVEDILOL 25 MG TABLET (COREG) GT SCH ×2 (09:29→22:57)
[2022-01-07] MEDS: ASPIRIN 81 MG TAB.CHEW GT SCH (09:29)
[2022-01-07] MEDS: HEPARIN SODIUM,PORCINE 5,000 UNITS/ML VIAL SUBCUT SCH ×2 (09:32→23:02)
[2022-01-07 12:53] VITALS: BP_SYST 110
[2022-01-07 16:00] VITALS: BP_SYST 101
[2022-01-07 22:12] VITALS: BP_SYST 110
[2022-01-07] MEDS: IPRATROPIUM/ALBUTEROL SULFATE 3 ML AMPUL.NEB (DUONEB) INH PRN (22:26)
[2022-01-07] MEDS: HALOPERIDOL 1 MG TABLET (HALDOL) GT SCH (22:58)
[2022-01-08 00:15] VITALS: BP_SYST 111
[2022-01-08] MEDS: IPRATROPIUM/ALBUTEROL SULFATE 3 ML AMPUL.NEB (DUONEB) INH PRN (07:56)
[2022-01-08 08:00] VITALS: BP_SYST 122
[2022-01-08] MEDS: ASPIRIN 81 MG TAB.CHEW GT SCH (10:39)
[2022-01-08] MEDS: MODAFINIL 100 MG TABLET (PROVIGIL) GT SCH (10:39)
[2022-01-08] MEDS: PANTOPRAZOLE SODIUM 40 MG/VIAL (PROTONIX) IVP SCH ×2 (10:39→22:39)
[2022-01-08] MEDS: ATORVASTATIN 20 MG TABLET GT SCH (10:39)
[2022-01-08] MEDS: CARVEDILOL 25 MG TABLET (COREG) GT SCH ×2 (10:40→22:39)
[2022-01-08] MEDS: levETIRAcetam 500 MG TABLET GT SCH ×2 (10:40→22:39)
[2022-01-08] MEDS: SCOPOLAMINE HYDROBROMIDE 1 MG PATCH .72 H (TRANSDERM-SCOP) TD SCH (10:41)
[2022-01-08] MEDS: HEPARIN SODIUM,PORCINE 5,000 UNITS/ML VIAL SUBCUT SCH ×2 (10:42→22:42)
[2022-01-08 12:00] VITALS: BP_SYST 102
[2022-01-08] MEDS: INSULIN LISPRO SLIDING SCALE 100 UNITS/ML VIAL (humaLOG) SUBCUT PRN (12:06)
[2022-01-08 16:00] VITALS: BP_SYST 115
[2022-01-08 20:41] VITALS: BP_SYST 109
[2022-01-08] MEDS: HALOPERIDOL 1 MG TABLET (HALDOL) GT SCH (22:46)
[2022-01-08 23:46] VITALS: BP_SYST 100
[2022-01-09] MEDS: INSULIN LISPRO SLIDING SCALE 100 UNITS/ML VIAL (humaLOG) SUBCUT PRN ×2 (06:23→17:39)
[2022-01-09 08:00] VITALS: BP_SYST 111
[2022-01-09] MEDS: HEPARIN SODIUM,PORCINE 5,000 UNITS/ML VIAL SUBCUT SCH ×2 (09:00→23:36)
[2022-01-09] MEDS: PANTOPRAZOLE SODIUM 40 MG/VIAL (PROTONIX) IVP SCH ×2 (10:50→23:36)
[2022-01-09] MEDS: MODAFINIL 100 MG TABLET (PROVIGIL) GT SCH (10:50)
[2022-01-09] MEDS: ASPIRIN 81 MG TAB.CHEW GT SCH (10:51)
[2022-01-09] MEDS: levETIRAcetam 500 MG TABLET GT SCH ×2 (10:54→23:37)
[2022-01-09] MEDS: CARVEDILOL 25 MG TABLET (COREG) GT SCH ×2 (10:57→21:00)
[2022-01-09] MEDS: ATORVASTATIN 20 MG TABLET GT SCH (10:59)
[2022-01-09 11:54] VITALS: BP_SYST 119
[2022-01-09 14:05] LABS: ALBUMIN 2.5 g/dL (3.4-4.8); CALCIUM 9.8 mg/dL (8.4-11.0); CREATININE 0.81 mg/dL (0.55-1.30); POTASSIUM 4.2 mmol/L (3.5-5.1); TOTAL BILIRUBIN 0.1 mg/dL (0.0-1.0)
[2022-01-09 15:24] VITALS: BP_SYST 93
[2022-01-09 20:00] VITALS: BP_SYST 99
[2022-01-09] MEDS: HALOPERIDOL 1 MG TABLET (HALDOL) GT SCH (21:00)
[2022-01-10 00:21] VITALS: BP_SYST 118
[2022-01-10] MEDS: INSULIN LISPRO SLIDING SCALE 100 UNITS/ML VIAL (humaLOG) SUBCUT PRN ×3 (07:11→23:34)
[2022-01-10 07:14] LABS: BASOPHILS # (AUTO) 0.1 K/uL (0.0-0.2); BASOPHILS % (AUTO) 0.5 % (0.0-2.0); EOSINOPHILS # (AUTO) 0.5 K/uL (0.0-0.4); EOSINOPHILS % (AUTO) 2.7 % (0.0-4.0); HEMATOCRIT 33.5 % (36-54); HEMOGLOBIN 10.8 g/dL (14.0-18.0); LYMPHOCYTES # (AUTO) 1.7 K/uL (1.0-5.5); LYMPHOCYTES % (AUTO) 10.3 % (20.5-51.5); MEAN CORPUSCULAR HEMOGLOBIN 27 pg (27-31); MEAN CORPUSCULAR HGB CONC 32 % (32-36); MEAN CORPUSCULAR VOLUME 83 fL (79.0-98.0); MONOCYTES # (AUTO) 1.4 K/uL (0.0-1.0); MONOCYTES % (AUTO) 8.4 % (1.7-9.3); NEUTROPHILS # (AUTO) 13.2 K/uL (1.8-7.7); NEUTROPHILS % (AUTO) 78.1 % (40.0-70.0); PLATELET COUNT (AUTO) 287 K/uL (130-430); RED BLOOD CELL COUNT(AUTO) 4.04 MIL/uL (4.2-6.2); RED CELL DISTRIBUTION WIDTH 13.7 % (9.0-15.0); WHITE BLOOD COUNT (AUTO) 16.9 K/uL (4.8-10.8)
[2022-01-10 07:26] LABS: ALBUMIN 2.7 g/dL (3.4-4.8); CALCIUM 9.5 mg/dL (8.4-11.0); CREATININE 0.74 mg/dL (0.55-1.30); POTASSIUM 4.2 mmol/L (3.5-5.1); TOTAL BILIRUBIN 0.2 mg/dL (0.0-1.0)
[2022-01-10] MEDS: HEPARIN SODIUM,PORCINE 5,000 UNITS/ML VIAL SUBCUT SCH ×2 (09:00→21:57)
[2022-01-10] MEDS: PANTOPRAZOLE SODIUM 40 MG/VIAL (PROTONIX) IVP SCH ×2 (09:00→21:55)
[2022-01-10] MEDS: ASPIRIN 81 MG TAB.CHEW GT SCH (10:41)
[2022-01-10] MEDS: levETIRAcetam 500 MG TABLET GT SCH ×2 (10:42→21:55)
[2022-01-10] MEDS: MODAFINIL 100 MG TABLET (PROVIGIL) GT SCH (10:43)
[2022-01-10] MEDS: ATORVASTATIN 20 MG TABLET GT SCH (10:44)
[2022-01-10] MEDS: CARVEDILOL 25 MG TABLET (COREG) GT SCH ×2 (11:04→22:06)
[2022-01-10 11:30] VITALS: BP_SYST 114
[2022-01-10 16:05] VITALS: BP_SYST 130
[2022-01-10] MEDS: NACL 0.9% 1,000 ML IV SCH (17:00)
[2022-01-10 20:00] VITALS: BP_SYST 104
[2022-01-10] MEDS: HALOPERIDOL 1 MG TABLET (HALDOL) GT SCH (21:55)
[2022-01-11] VITALS: BP_SYST 126
[2022-01-11] MEDS: NACL 0.9% 1,000 ML IV SCH ×2 (06:53→18:08)
[2022-01-11] MEDS: INSULIN LISPRO SLIDING SCALE 100 UNITS/ML VIAL (humaLOG) SUBCUT PRN ×2 (07:09→12:31)
[2022-01-11 08:00] VITALS: BP_SYST 104
[2022-01-11 08:05] LABS: BASOPHILS # (AUTO) 0.1 K/uL (0.0-0.2); BASOPHILS % (AUTO) 0.8 % (0.0-2.0); EOSINOPHILS # (AUTO) 0.4 K/uL (0.0-0.4); EOSINOPHILS % (AUTO) 3.1 % (0.0-4.0); HEMATOCRIT 33.9 % (36-54); LYMPHOCYTES # (AUTO) 1.7 K/uL (1.0-5.5); LYMPHOCYTES % (AUTO) 12.5 % (20.5-51.5); MEAN CORPUSCULAR HEMOGLOBIN 27 pg (27-31); MEAN CORPUSCULAR HGB CONC 33 % (32-36); MEAN CORPUSCULAR VOLUME 83 fL (79.0-98.0); MONOCYTES # (AUTO) 1.3 K/uL (0.0-1.0); MONOCYTES % (AUTO) 9.7 % (1.7-9.3); NEUTROPHILS # (AUTO) 10.2 K/uL (1.8-7.7); NEUTROPHILS % (AUTO) 73.9 % (40.0-70.0); PLATELET COUNT (AUTO) 310 K/uL (130-430); RED BLOOD CELL COUNT(AUTO) 4.08 MIL/uL (4.2-6.2); RED CELL DISTRIBUTION WIDTH 13.6 % (9.0-15.0); WHITE BLOOD COUNT (AUTO) 13.8 K/uL (4.8-10.8)
[2022-01-11 08:30] LABS: CALCIUM 10.4 mg/dL (8.4-11.0); CREATININE 0.86 mg/dL (0.55-1.30); POTASSIUM 3.8 mmol/L (3.5-5.1)
[2022-01-11] MEDS: CARVEDILOL 25 MG TABLET (COREG) GT SCH (09:00)
[2022-01-11] MEDS: ASPIRIN 81 MG TAB.CHEW GT SCH (09:04)
[2022-01-11] MEDS: SCOPOLAMINE HYDROBROMIDE 1 MG PATCH .72 H (TRANSDERM-SCOP) TD SCH (09:04)
[2022-01-11] MEDS: levETIRAcetam 500 MG TABLET GT SCH (09:04)
[2022-01-11] MEDS: MODAFINIL 100 MG TABLET (PROVIGIL) GT SCH (09:05)
[2022-01-11] MEDS: PANTOPRAZOLE SODIUM 40 MG/VIAL (PROTONIX) IVP SCH (09:06)
[2022-01-11] MEDS: ATORVASTATIN 20 MG TABLET GT SCH (09:06)
[2022-01-11] MEDS: HEPARIN SODIUM,PORCINE 5,000 UNITS/ML VIAL SUBCUT SCH (09:09)
[2022-01-11 12:00] VITALS: BP_SYST 115
[2022-01-11 15:54] VITALS: BP_SYST 100
[2022-01-11 19:00] VITALS: BP_SYST 110
[2022-01-11 20:00] VITALS: BP_SYST 110
[2022-01-11 21:38] LABS: BILIRUBIN,URINE NEGATIVE (NEGATIVE); BLOOD, URINE 3+ (NEGATIVE); CLARITY/URINE CLOUDY (CLEAR); COLOR,URINE YELLOW (YELLOW); GLUCOSE,URINE NEGATIVE (NEGATIVE); KETONES,URINE TRACE (NEGATIVE); LEUKOCYTE ESTERASE ,URINE 1+ (NEGATIVE); NITRITE, URINE POSITIVE (NEGATIVE); PROTEIN URINE 2+ (NEGATIVE)
[2022-01-11 21:58] LABS: BACTERIA,URINE MANY /HPF (None Seen); RBC,URINE >100 /HPF (0-3); WBC,URINE 80-100 /HPF (0-3)
[2022-01-11 21:59] LABS: OTHER CRYSTALS,URINE AMMONIUM BIURATES 1+ /HPF (None Seen); URINE AMORPHOUS PHOSPHATES 1+ /HPF (None Seen)
[2022-01-12] VITALS: BP_SYST 112
[2022-01-12] MEDS: CARVEDILOL 25 MG TABLET (COREG) GT SCH ×3 (01:17→21:40)
[2022-01-12] MEDS: levETIRAcetam 500 MG TABLET GT SCH ×3 (01:17→21:31)
[2022-01-12] MEDS: HALOPERIDOL 1 MG TABLET (HALDOL) GT SCH ×2 (01:17→21:32)
[2022-01-12] MEDS: PANTOPRAZOLE SODIUM 40 MG/VIAL (PROTONIX) IVP SCH ×3 (01:18→21:32)
[2022-01-12] MEDS: HEPARIN SODIUM,PORCINE 5,000 UNITS/ML VIAL SUBCUT SCH ×3 (01:20→21:39)
[2022-01-12] MEDS: NACL 0.9% 1,000 ML IV SCH ×2 (05:41→14:20)
[2022-01-12 07:49] VITALS: BP_SYST 121
[2022-01-12] MEDS: MODAFINIL 100 MG TABLET (PROVIGIL) GT SCH (10:00)
[2022-01-12] MEDS: ASPIRIN 81 MG TAB.CHEW GT SCH (10:01)
[2022-01-12] MEDS: ATORVASTATIN 20 MG TABLET GT SCH (10:01)
[2022-01-12 12:00] VITALS: BP_SYST 116
[2022-01-12] MEDS: INSULIN LISPRO SLIDING SCALE 100 UNITS/ML VIAL (humaLOG) SUBCUT PRN ×2 (12:15→17:33)
[2022-01-12] MEDS: cefTRIAXone 1 GM in D5W 50 ML IV SCH (14:11)
[2022-01-12 17:06] VITALS: BP_SYST 106
[2022-01-12 20:00] VITALS: BP_SYST 111
[2022-01-13] MEDS: NACL 0.9% 1,000 ML IV SCH ×3 (04:53→20:52)
[2022-01-13 05:46] VITALS: BP_SYST 122
[2022-01-13 08:00] VITALS: BP_SYST 131
[2022-01-13] MEDS: CARVEDILOL 25 MG TABLET (COREG) GT SCH (09:00)
[2022-01-13 10:44] VITALS: BP_SYST 131
[2022-01-13] MEDS: ASPIRIN 81 MG TAB.CHEW GT SCH (11:13)
[2022-01-13] MEDS: ATORVASTATIN 20 MG TABLET GT SCH (11:13)
[2022-01-13] MEDS: levETIRAcetam 500 MG TABLET GT SCH ×2 (11:14→20:49)
[2022-01-13] MEDS: HEPARIN SODIUM,PORCINE 5,000 UNITS/ML VIAL SUBCUT SCH ×2 (11:20→20:52)
[2022-01-13] MEDS: PANTOPRAZOLE SODIUM 40 MG/VIAL (PROTONIX) IVP SCH ×2 (11:23→20:49)
[2022-01-13] MEDS: MODAFINIL 100 MG TABLET (PROVIGIL) GT SCH (11:36)
[2022-01-13 12:54] VITALS: BP_SYST 97
[2022-01-13] MEDS: cefTRIAXone 1 GM in D5W 50 ML IV SCH (14:58)
[2022-01-13 17:48] VITALS: BP_SYST 122
[2022-01-13 20:46] VITALS: BP_SYST 108
[2022-01-13] MEDS: CARVEDILOL 12.5 MG TABLET (COREG) GT SCH (20:49)
[2022-01-13] MEDS: HALOPERIDOL 1 MG TABLET (HALDOL) GT SCH (20:50)
[2022-01-14 00:07] VITALS: BP_SYST 102
[2022-01-14] MEDS ORDERED: VANCOMYCIN HCL 1 GM/NS PREMIX 250 ML IV ONE (04:00)
[2022-01-14] MEDS ORDERED: VANCOMYCIN HCL 1000 MG/VIAL IV ONE (05:39)
[2022-01-14 06:43] LABS: BASOPHILS # (AUTO) 0.1 K/uL (0.0-0.2); BASOPHILS % (AUTO) 0.8 % (0.0-2.0); EOSINOPHILS # (AUTO) 0.5 K/uL (0.0-0.4); EOSINOPHILS % (AUTO) 6.3 % (0.0-4.0); HEMATOCRIT 31.2 % (36-54); HEMOGLOBIN 10.2 g/dL (14.0-18.0); LYMPHOCYTES # (AUTO) 1.4 K/uL (1.0-5.5); LYMPHOCYTES % (AUTO) 17.2 % (20.5-51.5); MEAN CORPUSCULAR HEMOGLOBIN 27 pg (27-31); MEAN CORPUSCULAR HGB CONC 33 % (32-36); MEAN CORPUSCULAR VOLUME 83 fL (79.0-98.0); MONOCYTES # (AUTO) 0.8 K/uL (0.0-1.0); MONOCYTES % (AUTO) 9.8 % (1.7-9.3); NEUTROPHILS # (AUTO) 5.4 K/uL (1.8-7.7); NEUTROPHILS % (AUTO) 65.9 % (40.0-70.0); PLATELET COUNT (AUTO) 341 K/uL (130-430); RED BLOOD CELL COUNT(AUTO) 3.77 MIL/uL (4.2-6.2); RED CELL DISTRIBUTION WIDTH 13.5 % (9.0-15.0); WHITE BLOOD COUNT (AUTO) 8.2 K/uL (4.8-10.8)
[2022-01-14 07:12] LABS: CALCIUM 9.6 mg/dL (8.4-11.0); CREATININE 0.79 mg/dL (0.55-1.30)
[2022-01-14] MEDS: CARVEDILOL 12.5 MG TABLET (COREG) GT SCH ×2 (09:00→21:12)
[2022-01-14] MEDS: SCOPOLAMINE HYDROBROMIDE 1 MG PATCH .72 H (TRANSDERM-SCOP) TD SCH (09:00)
[2022-01-14] MEDS: ASPIRIN 81 MG TAB.CHEW GT SCH (09:38)
[2022-01-14] MEDS: levETIRAcetam 500 MG TABLET GT SCH ×2 (09:38→21:12)
[2022-01-14] MEDS: ATORVASTATIN 20 MG TABLET GT SCH (09:39)
[2022-01-14] MEDS: MODAFINIL 100 MG TABLET (PROVIGIL) GT SCH (09:39)
[2022-01-14] MEDS: PANTOPRAZOLE SODIUM 40 MG/VIAL (PROTONIX) IVP SCH ×2 (09:39→21:12)
[2022-01-14] MEDS: HEPARIN SODIUM,PORCINE 5,000 UNITS/ML VIAL SUBCUT SCH ×2 (09:44→21:11)
[2022-01-14] MEDS: cefTRIAXone 1 GM in D5W 50 ML IV SCH (12:02)
[2022-01-14] MEDS: INSULIN LISPRO SLIDING SCALE 100 UNITS/ML VIAL (humaLOG) SUBCUT PRN (12:45)
[2022-01-14 13:05] VITALS: BP_SYST 107
[2022-01-14] MEDS: NACL 0.9% 1,000 ML IV SCH ×2 (15:49→23:42)
[2022-01-14 16:18] VITALS: BP_SYST 112
[2022-01-14 21:08] VITALS: BP_SYST 107
[2022-01-14] MEDS: HALOPERIDOL 1 MG TABLET (HALDOL) GT SCH (21:11)
[2022-01-15 00:08] VITALS: BP_SYST 111
[2022-01-15 08:00] VITALS: BP_SYST 113
[2022-01-15] MEDS: ASPIRIN 81 MG TAB.CHEW GT SCH (08:57)
[2022-01-15] MEDS: CARVEDILOL 12.5 MG TABLET (COREG) GT SCH ×3 (08:57→21:21)
[2022-01-15] MEDS: levETIRAcetam 500 MG TABLET GT SCH ×3 (08:58→21:21)
[2022-01-15] MEDS: PANTOPRAZOLE SODIUM 40 MG/VIAL (PROTONIX) IVP SCH ×2 (08:58→21:22)
[2022-01-15] MEDS: MODAFINIL 100 MG TABLET (PROVIGIL) GT SCH (08:58)
[2022-01-15] MEDS: ATORVASTATIN 20 MG TABLET GT SCH (08:58)
[2022-01-15] MEDS: HEPARIN SODIUM,PORCINE 5,000 UNITS/ML VIAL SUBCUT SCH ×2 (09:00→21:00)
[2022-01-15] MEDS: NACL 0.9% 1,000 ML IV SCH ×2 (11:16→20:27)
[2022-01-15 11:29] VITALS: BP_SYST 116
[2022-01-15] MEDS: cefTRIAXone 1 GM in D5W 50 ML IV SCH (12:35)
[2022-01-15 15:30] VITALS: BP_SYST 120
[2022-01-15 20:32] VITALS: BP_SYST 118
[2022-01-15] MEDS: HALOPERIDOL 1 MG TABLET (HALDOL) GT SCH (21:00)
[2022-01-16 00:35] VITALS: BP_SYST 131
[2022-01-16] MEDS: IPRATROPIUM/ALBUTEROL SULFATE 3 ML AMPUL.NEB (DUONEB) INH PRN (01:17)
[2022-01-16] MEDS: NACL 0.9% 1,000 ML IV SCH (06:04)
[2022-01-16 08:00] VITALS: BP_SYST 114; BP_SYST 148
[2022-01-16] MEDS: levETIRAcetam 500 MG TABLET GT SCH ×2 (08:06→21:09)
[2022-01-16] MEDS: ASPIRIN 81 MG TAB.CHEW GT SCH (08:06)
[2022-01-16] MEDS: MODAFINIL 100 MG TABLET (PROVIGIL) GT SCH (08:06)
[2022-01-16] MEDS: ATORVASTATIN 20 MG TABLET GT SCH (08:06)
[2022-01-16] MEDS: PANTOPRAZOLE SODIUM 40 MG/VIAL (PROTONIX) IVP SCH ×3 (08:06→22:00)
[2022-01-16] MEDS: CARVEDILOL 12.5 MG TABLET (COREG) GT SCH ×2 (08:07→21:09)
[2022-01-16] MEDS: HEPARIN SODIUM,PORCINE 5,000 UNITS/ML VIAL SUBCUT SCH ×3 (08:08→22:00)
[2022-01-16 08:15] VITALS: BP_SYST 114
[2022-01-16 10:42] VITALS: BP_SYST 114
[2022-01-16 11:29] VITALS: BP_SYST 133
[2022-01-16] MEDS: cefTRIAXone 1 GM in D5W 50 ML IV SCH (11:54)
[2022-01-16 15:33] VITALS: BP_SYST 140
[2022-01-16] MEDS: HALOPERIDOL 1 MG TABLET (HALDOL) GT SCH ×2 (21:10→22:00)
[2022-01-17 00:46] VITALS: BP_SYST 122
[2022-01-17] MEDS: NACL 0.9% 1,000 ML IV SCH ×3 (01:49→17:44)
[2022-01-17 05:21] VITALS: BP_SYST 136
[2022-01-17] MEDS: levETIRAcetam 500 MG TABLET GT SCH ×2 (08:32→21:12)
[2022-01-17] MEDS: ASPIRIN 81 MG TAB.CHEW GT SCH (08:32)
[2022-01-17] MEDS: ATORVASTATIN 20 MG TABLET GT SCH (08:32)
[2022-01-17] MEDS: PANTOPRAZOLE SODIUM 40 MG/VIAL (PROTONIX) IVP SCH ×2 (08:33→21:13)
[2022-01-17] MEDS: MODAFINIL 100 MG TABLET (PROVIGIL) GT SCH (08:33)
[2022-01-17] MEDS: CARVEDILOL 12.5 MG TABLET (COREG) GT SCH ×2 (08:34→21:13)
[2022-01-17] MEDS: HEPARIN SODIUM,PORCINE 5,000 UNITS/ML VIAL SUBCUT SCH ×2 (08:36→21:18)
[2022-01-17 08:45] VITALS: BP_SYST 140
[2022-01-17] MEDS ORDERED: ACETAMINOPHEN 500 MG TABLET PO PRN (09:00)
[2022-01-17] MEDS: SCOPOLAMINE HYDROBROMIDE 1 MG PATCH .72 H (TRANSDERM-SCOP) TD SCH (09:00)
[2022-01-17] MEDS: cefTRIAXone 1 GM in D5W 50 ML IV SCH (11:46)
[2022-01-17 12:36] VITALS: BP_SYST 127
[2022-01-17 16:32] VITALS: BP_SYST 126
[2022-01-17] MEDS: HALOPERIDOL 1 MG TABLET (HALDOL) GT SCH (21:13)
[2022-01-18 03:17] VITALS: BP_SYST 137
[2022-01-18 03:19] VITALS: BP_SYST 137
[2022-01-18 08:15] VITALS: BP_SYST 146
[2022-01-18] MEDS: PANTOPRAZOLE SODIUM 40 MG/VIAL (PROTONIX) IVP SCH ×3 (08:19→20:33)
[2022-01-18] MEDS: CARVEDILOL 12.5 MG TABLET (COREG) GT SCH ×3 (08:19→20:33)
[2022-01-18] MEDS: ATORVASTATIN 20 MG TABLET GT SCH (08:19)
[2022-01-18] MEDS: MODAFINIL 100 MG TABLET (PROVIGIL) GT SCH (08:19)
[2022-01-18] MEDS: levETIRAcetam 500 MG TABLET GT SCH ×3 (08:19→20:33)
[2022-01-18] MEDS: NACL 0.9% 1,000 ML IV SCH ×3 (08:20→20:25)
[2022-01-18] MEDS: ASPIRIN 81 MG TAB.CHEW GT SCH (08:20)
[2022-01-18] MEDS: HEPARIN SODIUM,PORCINE 5,000 UNITS/ML VIAL SUBCUT SCH ×3 (08:21→20:33)
[2022-01-18 11:28] VITALS: BP_SYST 103
[2022-01-18] MEDS: VANCOMYCIN HCL 1,250 MG in NS 250 ML IV SCH ×2 (14:31→22:00)
[2022-01-18 15:55] VITALS: BP_SYST 110
[2022-01-18 20:08] VITALS: BP_SYST 134
[2022-01-18] MEDS: HALOPERIDOL 1 MG TABLET (HALDOL) GT SCH ×2 (20:26→21:00)
[2022-01-19] VITALS (7 sets, daily range): BP systolic 124–133
[2022-01-19] MEDS: NACL 0.9% 1,000 ML IV SCH ×2 (05:39→14:39)
[2022-01-19] MEDS: VANCOMYCIN HCL 1,250 MG in NS 250 ML IV SCH ×3 (05:47→21:43)
[2022-01-19] MEDS: ATORVASTATIN 20 MG TABLET GT SCH ×2 (09:00→09:24)
[2022-01-19] MEDS: ASPIRIN 81 MG TAB.CHEW GT SCH ×2 (09:00→09:23)
[2022-01-19] MEDS: CARVEDILOL 12.5 MG TABLET (COREG) GT SCH ×3 (09:00→21:41)
[2022-01-19] MEDS: HEPARIN SODIUM,PORCINE 5,000 UNITS/ML VIAL SUBCUT SCH ×2 (09:00→21:55)
[2022-01-19] MEDS: levETIRAcetam 500 MG TABLET GT SCH ×3 (09:00→21:41)
[2022-01-19] MEDS: MODAFINIL 100 MG TABLET (PROVIGIL) GT SCH (09:00)
[2022-01-19] MEDS: PANTOPRAZOLE SODIUM 40 MG/VIAL (PROTONIX) IVP SCH ×2 (09:00→21:41)
[2022-01-19] MEDS: HALOPERIDOL 1 MG TABLET (HALDOL) GT SCH (21:41)
[2022-01-19] MEDS: INSULIN LISPRO SLIDING SCALE 100 UNITS/ML VIAL (humaLOG) SUBCUT PRN (21:54)
[2022-01-20 00:09] VITALS: BP_SYST 128
[2022-01-20] MEDS: NACL 0.9% 1,000 ML IV SCH ×2 (00:39→12:57)
[2022-01-20] MEDS: VANCOMYCIN HCL 1,250 MG in NS 250 ML IV SCH ×3 (05:07→22:55)
[2022-01-20 08:00] VITALS: BP_SYST 126
[2022-01-20] MEDS: SCOPOLAMINE HYDROBROMIDE 1 MG PATCH .72 H (TRANSDERM-SCOP) TD SCH (09:00)
[2022-01-20] MEDS: HEPARIN SODIUM,PORCINE 5,000 UNITS/ML VIAL SUBCUT SCH ×2 (09:00→22:47)
[2022-01-20] MEDS: ASPIRIN 81 MG TAB.CHEW GT SCH (09:46)
[2022-01-20] MEDS: MODAFINIL 100 MG TABLET (PROVIGIL) GT SCH (09:46)
[2022-01-20] MEDS: ATORVASTATIN 20 MG TABLET GT SCH (09:47)
[2022-01-20] MEDS: levETIRAcetam 500 MG TABLET GT SCH ×2 (09:47→22:41)
[2022-01-20] MEDS: CARVEDILOL 12.5 MG TABLET (COREG) GT SCH ×2 (09:48→22:42)
[2022-01-20] MEDS: PANTOPRAZOLE SODIUM 40 MG/VIAL (PROTONIX) IVP SCH ×2 (09:48→22:40)
[2022-01-20 16:03] VITALS: BP_SYST 118
[2022-01-20 17:07] LABS: BASOPHILS # (AUTO) 0.1 K/uL (0.0-0.2); BASOPHILS % (AUTO) 1.3 % (0.0-2.0); EOSINOPHILS # (AUTO) 0.7 K/uL (0.0-0.4); EOSINOPHILS % (AUTO) 7.6 % (0.0-4.0); HEMATOCRIT 32.8 % (36-54); HEMOGLOBIN 10.7 g/dL (14.0-18.0); LYMPHOCYTES % (AUTO) 23.3 % (20.5-51.5); MEAN CORPUSCULAR HEMOGLOBIN 27 pg (27-31); MEAN CORPUSCULAR HGB CONC 33 % (32-36); MEAN CORPUSCULAR VOLUME 83 fL (79.0-98.0); MONOCYTES # (AUTO) 0.6 K/uL (0.0-1.0); MONOCYTES % (AUTO) 7.4 % (1.7-9.3); NEUTROPHILS # (AUTO) 5.3 K/uL (1.8-7.7); NEUTROPHILS % (AUTO) 60.4 % (40.0-70.0); PLATELET COUNT (AUTO) 365 K/uL (130-430); RED BLOOD CELL COUNT(AUTO) 3.94 MIL/uL (4.2-6.2); RED CELL DISTRIBUTION WIDTH 13.6 % (9.0-15.0); WHITE BLOOD COUNT (AUTO) 8.7 K/uL (4.8-10.8)
[2022-01-20 17:26] LABS: ALBUMIN 2.4 g/dL (3.4-4.8); CALCIUM 9.4 mg/dL (8.4-11.0); CREATININE 0.68 mg/dL (0.55-1.30); POTASSIUM 3.9 mmol/L (3.5-5.1)
[2022-01-20 18:23] LABS: TOTAL BILIRUBIN 0.3 mg/dL (0.0-1.0)
[2022-01-20 20:30] VITALS: BP_SYST 145
[2022-01-20] MEDS: HALOPERIDOL 1 MG TABLET (HALDOL) GT SCH (22:41)
[2022-01-21 00:30] VITALS: BP_SYST 144
[2022-01-21] MEDS: NACL 0.9% 1,000 ML IV SCH ×2 (06:28→21:42)
[2022-01-21] MEDS: VANCOMYCIN HCL 1,250 MG in NS 250 ML IV SCH ×3 (06:30→21:42)
[2022-01-21 08:14] LABS: ALBUMIN 2.4 g/dL (3.4-4.8); CALCIUM 9.3 mg/dL (8.4-11.0); CREATININE 0.72 mg/dL (0.55-1.30); POTASSIUM 4.1 mmol/L (3.5-5.1)
[2022-01-21 08:27] LABS: TOTAL BILIRUBIN 0.1 mg/dL (0.0-1.0)
[2022-01-21] MEDS: ASPIRIN 81 MG TAB.CHEW GT SCH (09:21)
[2022-01-21] MEDS: levETIRAcetam 500 MG TABLET GT SCH ×2 (09:24→21:40)
[2022-01-21] MEDS: PANTOPRAZOLE SODIUM 40 MG/VIAL (PROTONIX) IVP SCH ×2 (09:24→21:40)
[2022-01-21] MEDS: ATORVASTATIN 20 MG TABLET GT SCH (09:24)
[2022-01-21] MEDS: MODAFINIL 100 MG TABLET (PROVIGIL) GT SCH (09:24)
[2022-01-21] MEDS: HEPARIN SODIUM,PORCINE 5,000 UNITS/ML VIAL SUBCUT SCH ×2 (09:29→21:43)
[2022-01-21] MEDS: CARVEDILOL 12.5 MG TABLET (COREG) GT SCH ×2 (09:33→21:40)
[2022-01-21 12:34] VITALS: BP_SYST 126
[2022-01-21 16:29] VITALS: BP_SYST 121
[2022-01-21 21:00] VITALS: BP_SYST 137
[2022-01-21] MEDS: HALOPERIDOL 1 MG TABLET (HALDOL) GT SCH (21:40)
[2022-01-22 00:53] VITALS: BP_SYST 123
[2022-01-22] MEDS: VANCOMYCIN HCL 1,250 MG in NS 250 ML IV SCH (06:29)
[2022-01-22 07:59] VITALS: BP_SYST 129
[2022-01-22] MEDS: PANTOPRAZOLE SODIUM 40 MG/VIAL (PROTONIX) IVP SCH ×2 (08:36→21:57)
[2022-01-22] MEDS: levETIRAcetam 500 MG TABLET GT SCH ×2 (08:37→21:58)
[2022-01-22] MEDS: MODAFINIL 100 MG TABLET (PROVIGIL) GT SCH (08:37)
[2022-01-22] MEDS: ASPIRIN 81 MG TAB.CHEW GT SCH (08:37)
[2022-01-22] MEDS: ATORVASTATIN 20 MG TABLET GT SCH (08:37)
[2022-01-22] MEDS: CARVEDILOL 12.5 MG TABLET (COREG) GT SCH ×2 (08:38→21:58)
[2022-01-22] MEDS: HEPARIN SODIUM,PORCINE 5,000 UNITS/ML VIAL SUBCUT SCH ×2 (08:38→21:57)
[2022-01-22 08:54] VITALS: BP_SYST 129
[2022-01-22] MEDS: INSULIN LISPRO SLIDING SCALE 100 UNITS/ML VIAL (humaLOG) SUBCUT PRN ×2 (11:48→22:16)
[2022-01-22 13:04] VITALS: BP_SYST 113
[2022-01-22 16:50] VITALS: BP_SYST 127
[2022-01-22] MEDS: IPRATROPIUM/ALBUTEROL SULFATE 3 ML AMPUL.NEB (DUONEB) INH PRN (19:40)
[2022-01-22] MEDS: HALOPERIDOL 1 MG TABLET (HALDOL) GT SCH (21:58)
[2022-01-23 00:11] VITALS: BP_SYST 116
[2022-01-23 08:00] VITALS: BP_SYST 138
[2022-01-23] MEDS: PANTOPRAZOLE SODIUM 40 MG/VIAL (PROTONIX) IVP SCH ×2 (09:59→22:10)
[2022-01-23] MEDS: SCOPOLAMINE HYDROBROMIDE 1 MG PATCH .72 H (TRANSDERM-SCOP) TD SCH (10:00)
[2022-01-23] MEDS: levETIRAcetam 500 MG TABLET GT SCH ×2 (10:00→22:12)
[2022-01-23] MEDS: ASPIRIN 81 MG TAB.CHEW GT SCH (10:00)
[2022-01-23] MEDS: ATORVASTATIN 20 MG TABLET GT SCH (10:00)
[2022-01-23] MEDS: CARVEDILOL 12.5 MG TABLET (COREG) GT SCH ×2 (10:02→22:11)
[2022-01-23] MEDS: MODAFINIL 100 MG TABLET (PROVIGIL) GT SCH (10:02)
[2022-01-23] MEDS: HEPARIN SODIUM,PORCINE 5,000 UNITS/ML VIAL SUBCUT SCH ×2 (10:04→22:13)
[2022-01-23 12:21] VITALS: BP_SYST 109
[2022-01-23] MEDS: INSULIN LISPRO SLIDING SCALE 100 UNITS/ML VIAL (humaLOG) SUBCUT PRN (12:37)
[2022-01-23 16:34] VITALS: BP_SYST 112
[2022-01-23 21:10] VITALS: BP_SYST 105
[2022-01-23] MEDS: HALOPERIDOL 1 MG TABLET (HALDOL) GT SCH (22:11)
[2022-01-24 02:38] VITALS: BP_SYST 113
[2022-01-24 08:00] VITALS: BP_SYST 116
[2022-01-24] MEDS: PANTOPRAZOLE SODIUM 40 MG/VIAL (PROTONIX) IVP SCH ×2 (09:56→21:48)
[2022-01-24] MEDS: ASPIRIN 81 MG TAB.CHEW GT SCH (09:56)
[2022-01-24] MEDS: CARVEDILOL 12.5 MG TABLET (COREG) GT SCH ×2 (09:57→21:50)
[2022-01-24] MEDS: MODAFINIL 100 MG TABLET (PROVIGIL) GT SCH (09:57)
[2022-01-24] MEDS: ATORVASTATIN 20 MG TABLET GT SCH (09:57)
[2022-01-24] MEDS: HEPARIN SODIUM,PORCINE 5,000 UNITS/ML VIAL SUBCUT SCH ×2 (09:59→21:53)
[2022-01-24 10:01] LABS: BASOPHILS # (AUTO) 0.1 K/uL (0.0-0.2); EOSINOPHILS # (AUTO) 0.5 K/uL (0.0-0.4); EOSINOPHILS % (AUTO) 6.5 % (0.0-4.0); HEMATOCRIT 32.7 % (36-54); HEMOGLOBIN 10.7 g/dL (14.0-18.0); LYMPHOCYTES # (AUTO) 1.8 K/uL (1.0-5.5); LYMPHOCYTES % (AUTO) 22.4 % (20.5-51.5); MEAN CORPUSCULAR HEMOGLOBIN 27 pg (27-31); MEAN CORPUSCULAR HGB CONC 33 % (32-36); MEAN CORPUSCULAR VOLUME 83 fL (79.0-98.0); MONOCYTES # (AUTO) 0.6 K/uL (0.0-1.0); MONOCYTES % (AUTO) 7.8 % (1.7-9.3); NEUTROPHILS % (AUTO) 62.3 % (40.0-70.0); PLATELET COUNT (AUTO) 330 K/uL (130-430); RED BLOOD CELL COUNT(AUTO) 3.96 MIL/uL (4.2-6.2)
[2022-01-24] MEDS: levETIRAcetam 500 MG TABLET GT SCH ×2 (10:02→21:51)
[2022-01-24 10:25] LABS: ALBUMIN 2.7 g/dL (3.4-4.8); CALCIUM 9.4 mg/dL (8.4-11.0); CREATININE 0.72 mg/dL (0.55-1.30); POTASSIUM 3.8 mmol/L (3.5-5.1); TOTAL BILIRUBIN 0.4 mg/dL (0.0-1.0); VANCOMYCIN,RANDOM 7.5 ug/mL
[2022-01-24 12:30] VITALS: BP_SYST 127
[2022-01-24 16:45] VITALS: BP_SYST 123
[2022-01-24 20:18] VITALS: BP_SYST 121
[2022-01-24] MEDS: HALOPERIDOL 1 MG TABLET (HALDOL) GT SCH (21:00)
[2022-01-24] MEDS: INSULIN LISPRO SLIDING SCALE 100 UNITS/ML VIAL (humaLOG) SUBCUT PRN (21:57)
[2022-01-25 00:38] VITALS: BP_SYST 121
[2022-01-25 08:11] VITALS: BP_SYST 122
[2022-01-25] MEDS: ASPIRIN 81 MG TAB.CHEW GT SCH (09:25)
[2022-01-25] MEDS: ATORVASTATIN 20 MG TABLET GT SCH (09:26)
[2022-01-25] MEDS: levETIRAcetam 500 MG TABLET GT SCH ×3 (09:26→21:07)
[2022-01-25] MEDS: CARVEDILOL 12.5 MG TABLET (COREG) GT SCH ×3 (09:26→21:07)
[2022-01-25] MEDS: PANTOPRAZOLE SODIUM 40 MG/VIAL (PROTONIX) IVP SCH ×3 (09:27→21:06)
[2022-01-25] MEDS: MODAFINIL 100 MG TABLET (PROVIGIL) GT SCH (09:27)
[2022-01-25] MEDS: HEPARIN SODIUM,PORCINE 5,000 UNITS/ML VIAL SUBCUT SCH ×2 (09:29→21:06)
[2022-01-25 11:33] VITALS: BP_SYST 113
[2022-01-25 15:33] VITALS: BP_SYST 114
[2022-01-25] MEDS: ONDANSETRON HCL 4 MG/2 ML VIAL IVP PRN (15:49)
[2022-01-25 20:20] VITALS: BP_SYST 109
[2022-01-26 08:00] VITALS: BP_SYST 122
[2022-01-26] MEDS: ATORVASTATIN 20 MG TABLET GT SCH (09:00)
[2022-01-26] MEDS: SCOPOLAMINE HYDROBROMIDE 1 MG PATCH .72 H (TRANSDERM-SCOP) TD SCH (09:00)
[2022-01-26] MEDS: ASPIRIN 81 MG TAB.CHEW GT SCH (10:23)
[2022-01-26] MEDS: levETIRAcetam 500 MG TABLET GT SCH ×2 (10:23→22:06)
[2022-01-26] MEDS: PANTOPRAZOLE SODIUM 40 MG/VIAL (PROTONIX) IVP SCH ×2 (10:23→22:07)
[2022-01-26] MEDS: MODAFINIL 100 MG TABLET (PROVIGIL) GT SCH (10:24)
[2022-01-26] MEDS: CARVEDILOL 12.5 MG TABLET (COREG) GT SCH ×2 (10:25→22:07)
[2022-01-26] MEDS: HEPARIN SODIUM,PORCINE 5,000 UNITS/ML VIAL SUBCUT SCH ×2 (10:31→21:00)
[2022-01-26 11:31] VITALS: BP_SYST 139
[2022-01-26 15:32] VITALS: BP_SYST 131
[2022-01-26 20:00] VITALS: BP_SYST 134
[2022-01-27] VITALS (7 sets, daily range): BP systolic 115–124
[2022-01-27] MEDS: INSULIN LISPRO SLIDING SCALE 100 UNITS/ML VIAL (humaLOG) SUBCUT PRN (05:49)
[2022-01-27] MEDS: MODAFINIL 100 MG TABLET (PROVIGIL) GT SCH (08:41)
[2022-01-27] MEDS: levETIRAcetam 500 MG TABLET GT SCH ×2 (08:42→20:19)
[2022-01-27] MEDS: CARVEDILOL 12.5 MG TABLET (COREG) GT SCH ×2 (08:42→20:19)
[2022-01-27] MEDS: ATORVASTATIN 20 MG TABLET GT SCH (08:42)
[2022-01-27] MEDS: ASPIRIN 81 MG TAB.CHEW GT SCH (08:42)
[2022-01-27] MEDS: PANTOPRAZOLE SODIUM 40 MG/VIAL (PROTONIX) IVP SCH ×3 (08:43→21:00)
[2022-01-27] MEDS: HEPARIN SODIUM,PORCINE 5,000 UNITS/ML VIAL SUBCUT SCH ×3 (08:45→21:00)
[2022-01-28 07:50] VITALS: BP_SYST 119
[2022-01-28] MEDS: ASPIRIN 81 MG TAB.CHEW GT SCH (09:00)
[2022-01-28] MEDS: HEPARIN SODIUM,PORCINE 5,000 UNITS/ML VIAL SUBCUT SCH ×2 (09:00→20:46)
[2022-01-28] MEDS: CARVEDILOL 12.5 MG TABLET (COREG) GT SCH ×2 (09:00→20:37)
[2022-01-28] MEDS: MODAFINIL 100 MG TABLET (PROVIGIL) GT SCH (09:00)
[2022-01-28] MEDS: PANTOPRAZOLE SODIUM 40 MG/VIAL (PROTONIX) IVP SCH ×2 (09:00→20:38)
[2022-01-28] MEDS: levETIRAcetam 500 MG TABLET GT SCH ×2 (09:00→20:37)
[2022-01-28] MEDS: ATORVASTATIN 20 MG TABLET GT SCH (09:00)
[2022-01-28 12:59] VITALS: BP_SYST 120
[2022-01-28 16:57] VITALS: BP_SYST 118
[2022-01-28 19:00] VITALS: BP_SYST 134
[2022-01-28 20:00] VITALS: BP_SYST 139
[2022-01-29 00:51] VITALS: BP_SYST 101
[2022-01-29] MEDS: INSULIN LISPRO SLIDING SCALE 100 UNITS/ML VIAL (humaLOG) SUBCUT PRN ×2 (05:43→16:57)
[2022-01-29 08:09] VITALS: BP_SYST 109
[2022-01-29] MEDS: PANTOPRAZOLE SODIUM 40 MG/VIAL (PROTONIX) IVP SCH ×3 (09:00→20:32)
[2022-01-29] MEDS: HEPARIN SODIUM,PORCINE 5,000 UNITS/ML VIAL SUBCUT SCH ×3 (09:00→20:36)
[2022-01-29] MEDS: levETIRAcetam 500 MG TABLET GT SCH ×2 (09:14→20:33)
[2022-01-29] MEDS: CARVEDILOL 12.5 MG TABLET (COREG) GT SCH ×2 (09:15→20:34)
[2022-01-29] MEDS: MODAFINIL 100 MG TABLET (PROVIGIL) GT SCH (09:15)
[2022-01-29] MEDS: ATORVASTATIN 20 MG TABLET GT SCH (09:15)
[2022-01-29] MEDS: ASPIRIN 81 MG TAB.CHEW GT SCH (09:15)
[2022-01-29] MEDS: SCOPOLAMINE HYDROBROMIDE 1 MG PATCH .72 H (TRANSDERM-SCOP) TD SCH (09:35)
[2022-01-29 11:36] VITALS: BP_SYST 119
[2022-01-29 15:26] VITALS: BP_SYST 123
[2022-01-29 20:00] VITALS: BP_SYST 115
[2022-01-30 00:51] VITALS: BP_SYST 104
[2022-01-30 08:00] VITALS: BP_SYST 116
[2022-01-30] MEDS: ASPIRIN 81 MG TAB.CHEW GT SCH (08:49)
[2022-01-30] MEDS: CARVEDILOL 12.5 MG TABLET (COREG) GT SCH ×2 (08:49→22:01)
[2022-01-30] MEDS: levETIRAcetam 500 MG TABLET GT SCH ×2 (08:50→22:01)
[2022-01-30] MEDS: MODAFINIL 100 MG TABLET (PROVIGIL) GT SCH (08:50)
[2022-01-30] MEDS: ATORVASTATIN 20 MG TABLET GT SCH (08:50)
[2022-01-30] MEDS: PANTOPRAZOLE SODIUM 40 MG/VIAL (PROTONIX) IVP SCH ×2 (09:00→21:00)
[2022-01-30] MEDS: HEPARIN SODIUM,PORCINE 5,000 UNITS/ML VIAL SUBCUT SCH ×2 (09:00→22:00)
[2022-01-30 11:28] VITALS: BP_SYST 116
[2022-01-30 15:30] VITALS: BP_SYST 108
[2022-01-30 20:00] VITALS: BP_SYST 112
[2022-01-31 00:48] VITALS: BP_SYST 109
[2022-01-31 08:00] VITALS: BP_SYST 140
[2022-01-31] MEDS: PANTOPRAZOLE SODIUM 40 MG/VIAL (PROTONIX) IVP SCH ×3 (09:00→21:00)
[2022-01-31] MEDS: IPRATROPIUM/ALBUTEROL SULFATE 3 ML AMPUL.NEB (DUONEB) INH PRN (09:58)
[2022-01-31 10:02] VITALS: BP_SYST 109
[2022-01-31] MEDS: levETIRAcetam 500 MG TABLET GT SCH ×2 (10:31→21:00)
[2022-01-31] MEDS: ASPIRIN 81 MG TAB.CHEW GT SCH (10:31)
[2022-01-31] MEDS: CARVEDILOL 12.5 MG TABLET (COREG) GT SCH ×2 (10:31→21:01)
[2022-01-31] MEDS: MODAFINIL 100 MG TABLET (PROVIGIL) GT SCH (10:32)
[2022-01-31] MEDS: HEPARIN SODIUM,PORCINE 5,000 UNITS/ML VIAL SUBCUT SCH ×2 (10:33→21:03)
[2022-01-31] MEDS: ATORVASTATIN 20 MG TABLET GT SCH (10:40)
[2022-01-31 11:27] VITALS: BP_SYST 127
[2022-01-31 15:28] VITALS: BP_SYST 131
[2022-01-31 20:28] VITALS: BP_SYST 121
[2022-02-01 00:57] VITALS: BP_SYST 111
[2022-02-01 08:00] VITALS: BP_SYST 121
[2022-02-01] MEDS: PANTOPRAZOLE SODIUM 40 MG/VIAL (PROTONIX) IVP SCH ×2 (09:00→20:45)
[2022-02-01] MEDS: CARVEDILOL 12.5 MG TABLET (COREG) GT SCH ×2 (09:53→20:38)
[2022-02-01] MEDS: levETIRAcetam 500 MG TABLET GT SCH ×2 (09:54→20:38)
[2022-02-01] MEDS: ASPIRIN 81 MG TAB.CHEW GT SCH (09:54)
[2022-02-01] MEDS: ATORVASTATIN 20 MG TABLET GT SCH (09:54)
[2022-02-01] MEDS: MODAFINIL 100 MG TABLET (PROVIGIL) GT SCH (09:54)
[2022-02-01] MEDS: SCOPOLAMINE HYDROBROMIDE 1 MG PATCH .72 H (TRANSDERM-SCOP) TD SCH (09:55)
[2022-02-01] MEDS: HEPARIN SODIUM,PORCINE 5,000 UNITS/ML VIAL SUBCUT SCH ×2 (09:56→20:43)
[2022-02-01 11:35] VITALS: BP_SYST 117
[2022-02-01 15:26] VITALS: BP_SYST 120
[2022-02-01 20:36] VITALS: BP_SYST 105
[2022-02-02 01:53] VITALS: BP_SYST 125
[2022-02-02] MEDS: ASPIRIN 81 MG TAB.CHEW GT SCH (09:49)
[2022-02-02] MEDS: ATORVASTATIN 20 MG TABLET GT SCH (09:49)
[2022-02-02] MEDS: CARVEDILOL 12.5 MG TABLET (COREG) GT SCH ×2 (09:54→20:33)
[2022-02-02] MEDS: PANTOPRAZOLE SODIUM 40 MG/VIAL (PROTONIX) IVP SCH ×2 (09:55→20:32)
[2022-02-02] MEDS: levETIRAcetam 500 MG TABLET GT SCH ×2 (09:55→20:33)
[2022-02-02] MEDS: MODAFINIL 100 MG TABLET (PROVIGIL) GT SCH (09:55)
[2022-02-02] MEDS: HEPARIN SODIUM,PORCINE 5,000 UNITS/ML VIAL SUBCUT SCH ×2 (10:01→20:40)
[2022-02-02 11:25] VITALS: BP_SYST 128
[2022-02-02 15:25] VITALS: BP_SYST 114
[2022-02-02] MEDS: INSULIN LISPRO SLIDING SCALE 100 UNITS/ML VIAL (humaLOG) SUBCUT PRN (20:36)
[2022-02-03 01:22] VITALS: BP_SYST 105
[2022-02-03] MEDS: INSULIN LISPRO SLIDING SCALE 100 UNITS/ML VIAL (humaLOG) SUBCUT PRN (05:43)
[2022-02-03 08:00] VITALS: BP_SYST 128
[2022-02-03] MEDS: levETIRAcetam 500 MG TABLET GT SCH ×2 (10:12→21:29)
[2022-02-03] MEDS: ASPIRIN 81 MG TAB.CHEW GT SCH (10:12)
[2022-02-03] MEDS: MODAFINIL 100 MG TABLET (PROVIGIL) GT SCH (10:12)
[2022-02-03] MEDS: PANTOPRAZOLE SODIUM 40 MG/VIAL (PROTONIX) IVP SCH ×2 (10:13→21:00)
[2022-02-03] MEDS: ATORVASTATIN 20 MG TABLET GT SCH (10:13)
[2022-02-03] MEDS: HEPARIN SODIUM,PORCINE 5,000 UNITS/ML VIAL SUBCUT SCH ×2 (10:17→21:00)
[2022-02-03] MEDS: CARVEDILOL 12.5 MG TABLET (COREG) GT SCH ×2 (10:23→21:00)
[2022-02-03 11:24] VITALS: BP_SYST 146
[2022-02-03 15:26] VITALS: BP_SYST 116
[2022-02-03 20:00] VITALS: BP_SYST 102
[2022-02-04 00:15] VITALS: BP_SYST 107
[2022-02-04 01:39] VITALS: BP_SYST 116
[2022-02-04] MEDS: MODAFINIL 100 MG TABLET (PROVIGIL) GT SCH (09:00)
[2022-02-04] MEDS: PANTOPRAZOLE SODIUM 40 MG/VIAL (PROTONIX) IVP SCH ×2 (09:00→21:00)
[2022-02-04] MEDS: levETIRAcetam 500 MG TABLET GT SCH ×2 (09:15→21:50)
[2022-02-04] MEDS: ATORVASTATIN 20 MG TABLET GT SCH (09:16)
[2022-02-04] MEDS: ASPIRIN 81 MG TAB.CHEW GT SCH (09:16)
[2022-02-04] MEDS: SCOPOLAMINE HYDROBROMIDE 1 MG PATCH .72 H (TRANSDERM-SCOP) TD SCH (09:18)
[2022-02-04] MEDS: CARVEDILOL 12.5 MG TABLET (COREG) GT SCH ×2 (09:26→21:00)
[2022-02-04] MEDS: HEPARIN SODIUM,PORCINE 5,000 UNITS/ML VIAL SUBCUT SCH ×2 (09:48→21:52)
[2022-02-04 09:50] VITALS: BP_SYST 109
[2022-02-04 12:30] VITALS: BP_SYST 120
[2022-02-04 16:53] VITALS: BP_SYST 123
[2022-02-04] MEDS: INSULIN LISPRO SLIDING SCALE 100 UNITS/ML VIAL (humaLOG) SUBCUT PRN (18:23)
[2022-02-04 20:00] VITALS: BP_SYST 110
[2022-02-05 00:30] VITALS: BP_SYST 115
[2022-02-05 08:10] VITALS: BP_SYST 111
[2022-02-05] MEDS: CARVEDILOL 12.5 MG TABLET (COREG) GT SCH ×2 (09:00→21:24)
[2022-02-05] MEDS: ASPIRIN 81 MG TAB.CHEW GT SCH (09:00)
[2022-02-05] MEDS: levETIRAcetam 500 MG TABLET GT SCH ×2 (09:00→21:23)
[2022-02-05] MEDS: ATORVASTATIN 20 MG TABLET GT SCH (09:00)
[2022-02-05] MEDS: HEPARIN SODIUM,PORCINE 5,000 UNITS/ML VIAL SUBCUT SCH ×2 (09:00→21:26)
[2022-02-05] MEDS: PANTOPRAZOLE SODIUM 40 MG/VIAL (PROTONIX) IVP SCH ×2 (09:00→21:00)
[2022-02-05] MEDS: MODAFINIL 100 MG TABLET (PROVIGIL) GT SCH (09:00)
[2022-02-05 13:04] VITALS: BP_SYST 118
[2022-02-05 16:35] VITALS: BP_SYST 113
[2022-02-05 19:50] VITALS: BP_SYST 116
[2022-02-06 01:18] VITALS: BP_SYST 110
[2022-02-06] MEDS: ASPIRIN 81 MG TAB.CHEW GT SCH (09:00)
[2022-02-06] MEDS: levETIRAcetam 500 MG TABLET GT SCH ×2 (09:00→21:24)
[2022-02-06] MEDS: CARVEDILOL 12.5 MG TABLET (COREG) GT SCH ×2 (09:00→21:00)
[2022-02-06] MEDS: PANTOPRAZOLE SODIUM 40 MG/VIAL (PROTONIX) IVP SCH ×2 (09:00→21:00)
[2022-02-06] MEDS: MODAFINIL 100 MG TABLET (PROVIGIL) GT SCH (09:00)
[2022-02-06] MEDS: HEPARIN SODIUM,PORCINE 5,000 UNITS/ML VIAL SUBCUT SCH ×2 (09:00→21:25)
[2022-02-06] MEDS: ATORVASTATIN 20 MG TABLET GT SCH (09:00)
[2022-02-06 16:10] VITALS: BP_SYST 112
[2022-02-06 19:35] VITALS: BP_SYST 109
[2022-02-06 23:00] VITALS: BP_SYST 119
[2022-02-07 08:00] VITALS: BP_SYST 106
[2022-02-07] MEDS: CARVEDILOL 12.5 MG TABLET (COREG) GT SCH ×3 (09:00→23:05)
[2022-02-07] MEDS: PANTOPRAZOLE SODIUM 40 MG/VIAL (PROTONIX) IVP SCH ×3 (09:00→23:03)
[2022-02-07] MEDS: levETIRAcetam 500 MG TABLET GT SCH ×2 (10:23→23:06)
[2022-02-07] MEDS: ASPIRIN 81 MG TAB.CHEW GT SCH (10:24)
[2022-02-07] MEDS: ATORVASTATIN 20 MG TABLET GT SCH (10:24)
[2022-02-07] MEDS: MODAFINIL 100 MG TABLET (PROVIGIL) GT SCH (10:24)
[2022-02-07] MEDS: SCOPOLAMINE HYDROBROMIDE 1 MG PATCH .72 H (TRANSDERM-SCOP) TD SCH (10:25)
[2022-02-07] MEDS: HEPARIN SODIUM,PORCINE 5,000 UNITS/ML VIAL SUBCUT SCH ×2 (10:27→23:03)
[2022-02-07 11:27] VITALS: BP_SYST 113
[2022-02-07 15:26] VITALS: BP_SYST 106
[2022-02-08 00:35] VITALS: BP_SYST 112
[2022-02-08 08:00] VITALS: BP_SYST 113
[2022-02-08] MEDS: ATORVASTATIN 20 MG TABLET GT SCH (09:00)
[2022-02-08] MEDS: levETIRAcetam 500 MG TABLET GT SCH ×2 (09:00→20:42)
[2022-02-08] MEDS: MODAFINIL 100 MG TABLET (PROVIGIL) GT SCH (09:00)
[2022-02-08] MEDS: HEPARIN SODIUM,PORCINE 5,000 UNITS/ML VIAL SUBCUT SCH ×2 (09:00→20:45)
[2022-02-08] MEDS: CARVEDILOL 12.5 MG TABLET (COREG) GT SCH ×2 (09:00→20:44)
[2022-02-08] MEDS: ASPIRIN 81 MG TAB.CHEW GT SCH (09:00)
[2022-02-08] MEDS: PANTOPRAZOLE SODIUM 40 MG/VIAL (PROTONIX) IVP SCH ×2 (09:00→20:42)
[2022-02-08 11:31] VITALS: BP_SYST 118
[2022-02-08 15:22] VITALS: BP_SYST 120
[2022-02-08] MEDS: INSULIN LISPRO SLIDING SCALE 100 UNITS/ML VIAL (humaLOG) SUBCUT PRN (17:40)
[2022-02-08 20:00] VITALS: BP_SYST 139
[2022-02-09 00:39] VITALS: BP_SYST 123
[2022-02-09] MEDS: INSULIN LISPRO SLIDING SCALE 100 UNITS/ML VIAL (humaLOG) SUBCUT PRN ×2 (06:32→06:46)
[2022-02-09 08:27] VITALS: BP_SYST 123
[2022-02-09] MEDS: ATORVASTATIN 20 MG TABLET GT SCH ×2 (09:00→14:13)
[2022-02-09] MEDS: CARVEDILOL 12.5 MG TABLET (COREG) GT SCH ×4 (09:00→21:18)
[2022-02-09] MEDS: HEPARIN SODIUM,PORCINE 5,000 UNITS/ML VIAL SUBCUT SCH ×2 (09:00→21:00)
[2022-02-09] MEDS: ASPIRIN 81 MG TAB.CHEW GT SCH ×2 (09:00→14:13)
[2022-02-09] MEDS: PANTOPRAZOLE SODIUM 40 MG/VIAL (PROTONIX) IVP SCH ×2 (09:00→21:00)
[2022-02-09] MEDS: MODAFINIL 100 MG TABLET (PROVIGIL) GT SCH ×2 (09:00→14:12)
[2022-02-09] MEDS: levETIRAcetam 500 MG TABLET GT SCH ×4 (09:00→21:18)
[2022-02-09 11:42] VITALS: BP_SYST 109
[2022-02-09 16:11] VITALS: BP_SYST 112
[2022-02-09 20:00] VITALS: BP_SYST 126
[2022-02-10 02:17] VITALS: BP_SYST 137
[2022-02-10] MEDS: INSULIN LISPRO SLIDING SCALE 100 UNITS/ML VIAL (humaLOG) SUBCUT PRN (06:30)
[2022-02-10 08:00] VITALS: BP_SYST 112
[2022-02-10] MEDS: HEPARIN SODIUM,PORCINE 5,000 UNITS/ML VIAL SUBCUT SCH (09:00)
[2022-02-10] MEDS: ATORVASTATIN 20 MG TABLET GT SCH (09:00)
[2022-02-10] MEDS: levETIRAcetam 500 MG TABLET GT SCH (11:15)
[2022-02-10] MEDS: ASPIRIN 81 MG TAB.CHEW GT SCH (11:15)
[2022-02-10] MEDS: MODAFINIL 100 MG TABLET (PROVIGIL) GT SCH (11:15)
[2022-02-10] MEDS: PANTOPRAZOLE SODIUM 40 MG/VIAL (PROTONIX) IVP SCH ×2 (11:15→21:00)
[2022-02-10] MEDS: CARVEDILOL 12.5 MG TABLET (COREG) GT SCH (11:16)
[2022-02-10] MEDS: SCOPOLAMINE HYDROBROMIDE 1 MG PATCH .72 H (TRANSDERM-SCOP) TD SCH (11:17)
[2022-02-10 12:54] VITALS: BP_SYST 122
[2022-02-10 16:50] VITALS: BP_SYST 117
[2022-02-11 00:41] VITALS: BP_SYST 112
[2022-02-11] MEDS: levETIRAcetam 500 MG TABLET GT SCH ×3 (00:47→21:00)
[2022-02-11] MEDS: CARVEDILOL 12.5 MG TABLET (COREG) GT SCH ×3 (00:49→21:00)
[2022-02-11] MEDS: HEPARIN SODIUM,PORCINE 5,000 UNITS/ML VIAL SUBCUT SCH ×3 (00:58→21:00)
[2022-02-11 08:30] VITALS: BP_SYST 109
[2022-02-11] MEDS: PANTOPRAZOLE SODIUM 40 MG/VIAL (PROTONIX) IVP SCH ×2 (09:00→21:00)
[2022-02-11] MEDS: MODAFINIL 100 MG TABLET (PROVIGIL) GT SCH (09:34)
[2022-02-11] MEDS: ASPIRIN 81 MG TAB.CHEW GT SCH (09:35)
[2022-02-11] MEDS: ATORVASTATIN 20 MG TABLET GT SCH (09:45)
[2022-02-11 11:41] VITALS: BP_SYST 113
[2022-02-11 16:29] VITALS: BP_SYST 116
[2022-02-11] MEDS: INSULIN LISPRO SLIDING SCALE 100 UNITS/ML VIAL (humaLOG) SUBCUT PRN (17:18)
[2022-02-11 20:00] VITALS: BP_SYST 111
[2022-02-12 00:41] VITALS: BP_SYST 118
[2022-02-12 08:00] VITALS: BP_SYST 109
[2022-02-12] MEDS: ASPIRIN 81 MG TAB.CHEW GT SCH (09:52)
[2022-02-12] MEDS: PANTOPRAZOLE SODIUM 40 MG/VIAL (PROTONIX) IVP SCH ×2 (09:52→21:00)
[2022-02-12] MEDS: MODAFINIL 100 MG TABLET (PROVIGIL) GT SCH (09:57)
[2022-02-12] MEDS: levETIRAcetam 500 MG TABLET GT SCH ×2 (09:58→22:11)
[2022-02-12] MEDS: CARVEDILOL 12.5 MG TABLET (COREG) GT SCH ×2 (09:58→21:00)
[2022-02-12] MEDS: ATORVASTATIN 20 MG TABLET GT SCH (09:58)
[2022-02-12] MEDS: HEPARIN SODIUM,PORCINE 5,000 UNITS/ML VIAL SUBCUT SCH ×2 (10:00→21:00)
[2022-02-12 12:55] VITALS: BP_SYST 113
[2022-02-12 16:13] VITALS: BP_SYST 110
[2022-02-12] MEDS: INSULIN LISPRO SLIDING SCALE 100 UNITS/ML VIAL (humaLOG) SUBCUT PRN (17:56)
[2022-02-12 20:00] VITALS: BP_SYST 102
[2022-02-12] MEDS: HALOPERIDOL 1 MG TABLET (HALDOL) GT PRN (22:11)
[2022-02-13] MEDS: CARVEDILOL 12.5 MG TABLET (COREG) GT SCH ×2 (09:00→21:00)
[2022-02-13] MEDS: PANTOPRAZOLE SODIUM 40 MG/VIAL (PROTONIX) IVP SCH ×2 (09:00→21:00)
[2022-02-13] MEDS: HEPARIN SODIUM,PORCINE 5,000 UNITS/ML VIAL SUBCUT SCH ×2 (09:00→21:00)
[2022-02-13] MEDS: levETIRAcetam 500 MG TABLET GT SCH ×2 (09:00→21:25)
[2022-02-13] MEDS: ATORVASTATIN 20 MG TABLET GT SCH (09:00)
[2022-02-13] MEDS: MODAFINIL 100 MG TABLET (PROVIGIL) GT SCH (09:00)
[2022-02-13] MEDS: ASPIRIN 81 MG TAB.CHEW GT SCH (09:00)
[2022-02-13] MEDS: SCOPOLAMINE HYDROBROMIDE 1 MG PATCH .72 H (TRANSDERM-SCOP) TD SCH (09:00)
[2022-02-13 11:37] VITALS: BP_SYST 110
[2022-02-13 13:44] VITALS: BP_SYST 122
[2022-02-13 15:15] VITALS: BP_SYST 125
[2022-02-13 16:33] VITALS: BP_SYST 125
[2022-02-13 20:00] VITALS: BP_SYST 111
[2022-02-13] MEDS: HALOPERIDOL 1 MG TABLET (HALDOL) GT PRN (21:25)
[2022-02-14 00:26] VITALS: BP_SYST 126
[2022-02-14 07:17] LABS: BASOPHILS # (AUTO) 0.1 K/uL (0.0-0.2); BASOPHILS % (AUTO) 0.8 % (0.0-2.0); EOSINOPHILS # (AUTO) 0.2 K/uL (0.0-0.4); EOSINOPHILS % (AUTO) 2.7 % (0.0-4.0); HEMATOCRIT 32.9 % (36-54); HEMOGLOBIN 10.7 g/dL (14.0-18.0); LYMPHOCYTES # (AUTO) 1.5 K/uL (1.0-5.5); LYMPHOCYTES % (AUTO) 16.9 % (20.5-51.5); MEAN CORPUSCULAR HEMOGLOBIN 27 pg (27-31); MEAN CORPUSCULAR HGB CONC 33 % (32-36); MEAN CORPUSCULAR VOLUME 83 fL (79.0-98.0); MONOCYTES # (AUTO) 1.1 K/uL (0.0-1.0); MONOCYTES % (AUTO) 12.5 % (1.7-9.3); NEUTROPHILS # (AUTO) 5.9 K/uL (1.8-7.7); NEUTROPHILS % (AUTO) 67.1 % (40.0-70.0); PLATELET COUNT (AUTO) 334 K/uL (130-430); RED BLOOD CELL COUNT(AUTO) 3.97 MIL/uL (4.2-6.2); WHITE BLOOD COUNT (AUTO) 8.7 K/uL (4.8-10.8)
[2022-02-14 07:49] LABS: ALBUMIN 2.6 g/dL (3.4-4.8); CALCIUM 9.7 mg/dL (8.4-11.0); CREATININE 0.84 mg/dL (0.55-1.30); PHOSPHORUS 3.7 mg/dL (2.7-4.5); POTASSIUM 4.1 mmol/L (3.5-5.1); TOTAL BILIRUBIN 0.3 mg/dL (0.0-1.0)
[2022-02-14 08:14] VITALS: BP_SYST 115
[2022-02-14] MEDS: ASPIRIN 81 MG TAB.CHEW GT SCH (08:49)
[2022-02-14] MEDS: CARVEDILOL 12.5 MG TABLET (COREG) GT SCH ×2 (08:50→23:23)
[2022-02-14] MEDS: levETIRAcetam 500 MG TABLET GT SCH ×2 (08:50→23:15)
[2022-02-14] MEDS: ATORVASTATIN 20 MG TABLET GT SCH (08:50)
[2022-02-14] MEDS: MODAFINIL 100 MG TABLET (PROVIGIL) GT SCH (08:53)
[2022-02-14] MEDS: HEPARIN SODIUM,PORCINE 5,000 UNITS/ML VIAL SUBCUT SCH ×2 (08:54→21:00)
[2022-02-14] MEDS: PANTOPRAZOLE SODIUM 40 MG/VIAL (PROTONIX) IVP SCH ×2 (08:54→21:00)
[2022-02-14] MEDS: INSULIN LISPRO SLIDING SCALE 100 UNITS/ML VIAL (humaLOG) SUBCUT PRN ×2 (11:18→23:45)
[2022-02-14 12:30] VITALS: BP_SYST 119
[2022-02-14 16:30] VITALS: BP_SYST 124
[2022-02-14 20:00] VITALS: BP_SYST 114
[2022-02-15] VITALS: BP_SYST 116
[2022-02-15 08:00] VITALS: BP_SYST 110
[2022-02-15] MEDS: MODAFINIL 100 MG TABLET (PROVIGIL) GT SCH (09:00)
[2022-02-15] MEDS: levETIRAcetam 500 MG TABLET GT SCH ×2 (09:00→22:43)
[2022-02-15] MEDS: ASPIRIN 81 MG TAB.CHEW GT SCH (09:00)
[2022-02-15] MEDS: ATORVASTATIN 20 MG TABLET GT SCH (09:00)
[2022-02-15] MEDS: CARVEDILOL 12.5 MG TABLET (COREG) GT SCH ×2 (09:00→21:00)
[2022-02-15] MEDS: PANTOPRAZOLE SODIUM 40 MG/VIAL (PROTONIX) IVP SCH ×2 (09:00→21:00)
[2022-02-15 09:39] LABS: BASOPHILS # (AUTO) 0.1 K/uL (0.0-0.2); EOSINOPHILS # (AUTO) 0.2 K/uL (0.0-0.4); EOSINOPHILS % (AUTO) 1.9 % (0.0-4.0); HEMATOCRIT 32.6 % (36-54); HEMOGLOBIN 10.7 g/dL (14.0-18.0); LYMPHOCYTES # (AUTO) 1.5 K/uL (1.0-5.5); LYMPHOCYTES % (AUTO) 14.1 % (20.5-51.5); MEAN CORPUSCULAR HEMOGLOBIN 27 pg (27-31); MEAN CORPUSCULAR HGB CONC 33 % (32-36); MEAN CORPUSCULAR VOLUME 82 fL (79.0-98.0); NEUTROPHILS # (AUTO) 7.6 K/uL (1.8-7.7); PLATELET COUNT (AUTO) 399 K/uL (130-430); RED BLOOD CELL COUNT(AUTO) 3.97 MIL/uL (4.2-6.2); RED CELL DISTRIBUTION WIDTH 13.8 % (9.0-15.0); WHITE BLOOD COUNT (AUTO) 10.4 K/uL (4.8-10.8)
[2022-02-15 10:57] LABS: ALBUMIN 2.6 g/dL (3.4-4.8); CALCIUM 10.2 mg/dL (8.4-11.0); CREATININE 0.83 mg/dL (0.55-1.30); POTASSIUM 3.9 mmol/L (3.5-5.1); TOTAL BILIRUBIN 0.4 mg/dL (0.0-1.0)
[2022-02-15 12:31] VITALS: BP_SYST 105
[2022-02-15] MEDS: HYDROcodone/ACETAMIN 5-325 MG TAB (NORCO/ VICODIN) PO PRN (13:37)
[2022-02-15 17:03] VITALS: BP_SYST 99
[2022-02-16 02:05] VITALS: BP_SYST 102
[2022-02-16 08:10] LABS: BASOPHILS # (AUTO) 0.1 K/uL (0.0-0.2); BASOPHILS % (AUTO) 0.8 % (0.0-2.0); EOSINOPHILS # (AUTO) 0.2 K/uL (0.0-0.4); HEMATOCRIT 32.7 % (36-54); HEMOGLOBIN 10.8 g/dL (14.0-18.0); LYMPHOCYTES # (AUTO) 1.1 K/uL (1.0-5.5); LYMPHOCYTES % (AUTO) 9.8 % (20.5-51.5); MEAN CORPUSCULAR HEMOGLOBIN 27 pg (27-31); MEAN CORPUSCULAR HGB CONC 33 % (32-36); MEAN CORPUSCULAR VOLUME 82 fL (79.0-98.0); MONOCYTES # (AUTO) 1.2 K/uL (0.0-1.0); MONOCYTES % (AUTO) 10.8 % (1.7-9.3); NEUTROPHILS # (AUTO) 8.7 K/uL (1.8-7.7); NEUTROPHILS % (AUTO) 76.6 % (40.0-70.0); PLATELET COUNT (AUTO) 410 K/uL (130-430); RED BLOOD CELL COUNT(AUTO) 4.01 MIL/uL (4.2-6.2); WHITE BLOOD COUNT (AUTO) 11.4 K/uL (4.8-10.8)
[2022-02-16] MEDS: MODAFINIL 100 MG TABLET (PROVIGIL) GT SCH (09:00)
[2022-02-16] MEDS: SCOPOLAMINE HYDROBROMIDE 1 MG PATCH .72 H (TRANSDERM-SCOP) TD SCH (09:00)
[2022-02-16] MEDS: PANTOPRAZOLE SODIUM 40 MG/VIAL (PROTONIX) IVP SCH ×2 (09:00→21:00)
[2022-02-16 09:06] LABS: ALBUMIN 2.5 g/dL (3.4-4.8); CALCIUM 10.3 mg/dL (8.4-11.0); CREATININE 0.81 mg/dL (0.55-1.30); PHOSPHORUS 3.6 mg/dL (2.7-4.5); POTASSIUM 4.1 mmol/L (3.5-5.1); TOTAL BILIRUBIN 0.2 mg/dL (0.0-1.0)
[2022-02-16] MEDS: ASPIRIN 81 MG TAB.CHEW GT SCH (09:46)
[2022-02-16] MEDS: ATORVASTATIN 20 MG TABLET GT SCH (09:47)
[2022-02-16] MEDS: levETIRAcetam 500 MG TABLET GT SCH ×2 (09:47→21:11)
[2022-02-16] MEDS: CARVEDILOL 12.5 MG TABLET (COREG) GT SCH ×2 (09:47→21:10)
[2022-02-16 11:55] VITALS: BP_SYST 116
[2022-02-16 16:32] VITALS: BP_SYST 110
[2022-02-16 20:00] VITALS: BP_SYST 128
[2022-02-16] MEDS: HALOPERIDOL 1 MG TABLET (HALDOL) GT PRN (21:11)
[2022-02-17 01:25] VITALS: BP_SYST 106
[2022-02-17 07:57] LABS: BASOPHILS # (AUTO) 0.1 K/uL (0.0-0.2); BASOPHILS % (AUTO) 0.7 % (0.0-2.0); EOSINOPHILS # (AUTO) 0.2 K/uL (0.0-0.4); HEMATOCRIT 32.2 % (36-54); HEMOGLOBIN 10.6 g/dL (14.0-18.0); LYMPHOCYTES # (AUTO) 1.5 K/uL (1.0-5.5); LYMPHOCYTES % (AUTO) 13.9 % (20.5-51.5); MEAN CORPUSCULAR HEMOGLOBIN 27 pg (27-31); MEAN CORPUSCULAR HGB CONC 33 % (32-36); MEAN CORPUSCULAR VOLUME 82 fL (79.0-98.0); MONOCYTES # (AUTO) 1.2 K/uL (0.0-1.0); MONOCYTES % (AUTO) 11.2 % (1.7-9.3); NEUTROPHILS # (AUTO) 7.9 K/uL (1.8-7.7); NEUTROPHILS % (AUTO) 72.2 % (40.0-70.0); PLATELET COUNT (AUTO) 460 K/uL (130-430); RED BLOOD CELL COUNT(AUTO) 3.92 MIL/uL (4.2-6.2); RED CELL DISTRIBUTION WIDTH 13.7 % (9.0-15.0)
[2022-02-17 08:44] LABS: ALBUMIN 2.5 g/dL (3.4-4.8); CALCIUM 9.6 mg/dL (8.4-11.0); CREATININE 0.91 mg/dL (0.55-1.30); PHOSPHORUS 4.5 mg/dL (2.7-4.5)
[2022-02-17 08:53] LABS: TOTAL BILIRUBIN 0.7 mg/dL (0.0-1.0)
[2022-02-17] MEDS: MODAFINIL 100 MG TABLET (PROVIGIL) GT SCH (08:54)
[2022-02-17] MEDS: CARVEDILOL 12.5 MG TABLET (COREG) GT SCH ×2 (08:54→21:00)
[2022-02-17] MEDS ORDERED: levETIRAcetam 500 MG TABLET ONE (08:54)
[2022-02-17] MEDS: ATORVASTATIN 20 MG TABLET GT SCH (08:54)
[2022-02-17] MEDS: PANTOPRAZOLE SODIUM 40 MG/VIAL (PROTONIX) IVP SCH ×2 (08:54→21:00)
[2022-02-17] MEDS: ASPIRIN 81 MG TAB.CHEW GT SCH (08:54)
[2022-02-17] MEDS: levETIRAcetam 500 MG TABLET GT SCH ×2 (08:55→21:26)
[2022-02-17 12:31] VITALS: BP_SYST 99
[2022-02-17] MEDS: HYDROcodone/ACETAMIN 5-325 MG TAB (NORCO/ VICODIN) PO PRN (15:27)
[2022-02-17 17:36] VITALS: BP_SYST 96
[2022-02-17 20:00] VITALS: BP_SYST 105
[2022-02-17] MEDS: HALOPERIDOL 1 MG TABLET (HALDOL) GT PRN (21:27)
[2022-02-18 01:25] VITALS: BP_SYST 110
[2022-02-18] MEDS: PANTOPRAZOLE SODIUM 40 MG/VIAL (PROTONIX) IVP SCH ×3 (08:22→21:23)
[2022-02-18] MEDS: ASPIRIN 81 MG TAB.CHEW GT SCH (09:01)
[2022-02-18] MEDS: MODAFINIL 100 MG TABLET (PROVIGIL) GT SCH (09:01)
[2022-02-18] MEDS: ATORVASTATIN 20 MG TABLET GT SCH (09:01)
[2022-02-18] MEDS: levETIRAcetam 500 MG TABLET GT SCH ×2 (09:01→21:24)
[2022-02-18] MEDS: CARVEDILOL 12.5 MG TABLET (COREG) GT SCH ×2 (09:02→21:00)
[2022-02-18 09:53] VITALS: BP_SYST 131
[2022-02-18 10:55] VITALS: BP_SYST 131
[2022-02-18 11:59] VITALS: BP_SYST 128
[2022-02-18 20:00] VITALS: BP_SYST 109
[2022-02-19 00:16] VITALS: BP_SYST 120
[2022-02-19] MEDS: SCOPOLAMINE HYDROBROMIDE 1 MG PATCH .72 H (TRANSDERM-SCOP) TD SCH (09:00)
[2022-02-19] MEDS: PANTOPRAZOLE SODIUM 40 MG/VIAL (PROTONIX) IVP SCH ×2 (09:00→21:00)
[2022-02-19] MEDS: MODAFINIL 100 MG TABLET (PROVIGIL) GT SCH (09:19)
[2022-02-19] MEDS: ASPIRIN 81 MG TAB.CHEW GT SCH (09:19)
[2022-02-19] MEDS: levETIRAcetam 500 MG TABLET GT SCH ×2 (09:19→21:00)
[2022-02-19] MEDS: ATORVASTATIN 20 MG TABLET GT SCH (09:19)
[2022-02-19] MEDS: CARVEDILOL 12.5 MG TABLET (COREG) GT SCH ×2 (09:20→22:18)
[2022-02-19 09:21] VITALS: BP_SYST 128
[2022-02-19 11:30] VITALS: BP_SYST 121
[2022-02-19 16:29] VITALS: BP_SYST 124
[2022-02-19 20:00] VITALS: BP_SYST 111
[2022-02-20 02:12] VITALS: BP_SYST 154
[2022-02-20] MEDS: PANTOPRAZOLE SODIUM 40 MG/VIAL (PROTONIX) IVP SCH ×2 (09:00→21:00)
[2022-02-20] MEDS: levETIRAcetam 500 MG TABLET GT SCH ×2 (10:26→22:05)
[2022-02-20] MEDS: ASPIRIN 81 MG TAB.CHEW GT SCH (10:26)
[2022-02-20] MEDS: MODAFINIL 100 MG TABLET (PROVIGIL) GT SCH (10:27)
[2022-02-20] MEDS: CARVEDILOL 12.5 MG TABLET (COREG) GT SCH ×2 (10:29→22:05)
[2022-02-20] MEDS: ATORVASTATIN 20 MG TABLET GT SCH (10:30)
[2022-02-20 16:11] VITALS: BP_SYST 123
[2022-02-20 20:00] VITALS: BP_SYST 113
[2022-02-21] VITALS (7 sets, daily range): BP systolic 105–121
[2022-02-21] MEDS: HYDROcodone/ACETAMIN 5-325 MG TAB (NORCO/ VICODIN) PO PRN (04:15)
[2022-02-21] MEDS: PANTOPRAZOLE SODIUM 40 MG/VIAL (PROTONIX) IVP SCH ×2 (09:00→21:00)
[2022-02-21] MEDS: SCOPOLAMINE HYDROBROMIDE 1 MG PATCH .72 H (TRANSDERM-SCOP) TD SCH (09:00)
[2022-02-21] MEDS: ASPIRIN 81 MG TAB.CHEW GT SCH (10:32)
[2022-02-21] MEDS: CARVEDILOL 12.5 MG TABLET (COREG) GT SCH ×2 (10:32→21:32)
[2022-02-21] MEDS: levETIRAcetam 500 MG TABLET GT SCH ×2 (10:33→21:31)
[2022-02-21] MEDS: HALOPERIDOL 1 MG TABLET (HALDOL) GT PRN (10:33)
[2022-02-21] MEDS: MODAFINIL 100 MG TABLET (PROVIGIL) GT SCH (10:33)
[2022-02-21] MEDS: ATORVASTATIN 20 MG TABLET GT SCH (10:33)
[2022-02-22 00:14] VITALS: BP_SYST 120
[2022-02-22 08:32] VITALS: BP_SYST 111
[2022-02-22] MEDS: levETIRAcetam 500 MG TABLET GT SCH ×3 (09:00→21:48)
[2022-02-22] MEDS: PANTOPRAZOLE SODIUM 40 MG/VIAL (PROTONIX) IVP SCH ×2 (09:00→21:00)
[2022-02-22] MEDS: ASPIRIN 81 MG TAB.CHEW GT SCH ×2 (09:00→10:05)
[2022-02-22] MEDS: ATORVASTATIN 20 MG TABLET GT SCH ×2 (09:00→10:06)
[2022-02-22] MEDS: MODAFINIL 100 MG TABLET (PROVIGIL) GT SCH ×2 (09:00→10:04)
[2022-02-22] MEDS: CARVEDILOL 12.5 MG TABLET (COREG) GT SCH ×3 (09:00→21:48)
[2022-02-22] MEDS: HYDROcodone/ACETAMIN 5-325 MG TAB (NORCO/ VICODIN) PO PRN ×2 (10:07→11:31)
[2022-02-22 11:26] VITALS: BP_SYST 111
[2022-02-22 12:14] VITALS: BP_SYST 115
[2022-02-22 16:58] VITALS: BP_SYST 114
[2022-02-22 20:00] VITALS: BP_SYST 124
[2022-02-22] MEDS: QUEtiapine FUMARATE 25 MG TABLET PO SCH (21:46)
[2022-02-23 00:30] VITALS: BP_SYST 126
[2022-02-23 08:00] VITALS: BP_SYST 125
[2022-02-23] MEDS: PANTOPRAZOLE SODIUM 40 MG/VIAL (PROTONIX) IVP SCH ×2 (09:00→21:11)
[2022-02-23] MEDS: ATORVASTATIN 20 MG TABLET GT SCH (09:03)
[2022-02-23] MEDS: QUEtiapine FUMARATE 25 MG TABLET PO SCH ×2 (09:03→21:10)
[2022-02-23] MEDS: ASPIRIN 81 MG TAB.CHEW GT SCH (09:03)
[2022-02-23] MEDS: MODAFINIL 100 MG TABLET (PROVIGIL) GT SCH (09:03)
[2022-02-23] MEDS: levETIRAcetam 500 MG TABLET GT SCH ×2 (09:03→21:11)
[2022-02-23] MEDS: CARVEDILOL 12.5 MG TABLET (COREG) GT SCH ×2 (09:04→21:11)
[2022-02-23] MEDS: ACETAMINOPHEN 650 MG/20.3 ML UDC GT PRN (09:07)
[2022-02-23 12:58] VITALS: BP_SYST 127
[2022-02-23 16:07] VITALS: BP_SYST 126
[2022-02-23 20:00] VITALS: BP_SYST 139
[2022-02-24 01:49] VITALS: BP_SYST 116
[2022-02-24] MEDS: NACL 0.9% 1,000 ML IV SCH (09:00)
[2022-02-24] MEDS: PANTOPRAZOLE SODIUM 40 MG/VIAL (PROTONIX) IVP SCH ×2 (09:10→21:37)
[2022-02-24] MEDS: ASPIRIN 81 MG TAB.CHEW GT SCH (09:11)
[2022-02-24] MEDS: CARVEDILOL 12.5 MG TABLET (COREG) GT SCH ×2 (09:11→21:00)
[2022-02-24] MEDS: MODAFINIL 100 MG TABLET (PROVIGIL) GT SCH (09:12)
[2022-02-24] MEDS: levETIRAcetam 500 MG TABLET GT SCH ×2 (09:12→21:37)
[2022-02-24] MEDS: ATORVASTATIN 20 MG TABLET GT SCH (09:12)
[2022-02-24] MEDS: QUEtiapine FUMARATE 25 MG TABLET PO SCH ×2 (09:13→21:37)
[2022-02-24] MEDS: SCOPOLAMINE HYDROBROMIDE 1 MG PATCH .72 H (TRANSDERM-SCOP) TD SCH (09:13)
[2022-02-24 11:35] VITALS: BP_SYST 122
[2022-02-24 15:54] VITALS: BP_SYST 110
[2022-02-24 18:25] VITALS: BP_SYST 110
[2022-02-24 20:00] VITALS: BP_SYST 108
[2022-02-25 00:06] VITALS: BP_SYST 117
[2022-02-25 08:10] VITALS: BP_SYST 109
[2022-02-25 08:29] VITALS: BP_SYST 109
[2022-02-25] MEDS: IPRATROPIUM/ALBUTEROL SULFATE 3 ML AMPUL.NEB (DUONEB) INH PRN ×2 (09:04→17:22)
[2022-02-25] MEDS: PANTOPRAZOLE SODIUM 40 MG/VIAL (PROTONIX) IVP SCH ×2 (09:53→21:00)
[2022-02-25] MEDS: ASPIRIN 81 MG TAB.CHEW GT SCH (09:54)
[2022-02-25] MEDS: ATORVASTATIN 20 MG TABLET GT SCH (09:54)
[2022-02-25] MEDS: CARVEDILOL 12.5 MG TABLET (COREG) GT SCH ×2 (09:55→21:00)
[2022-02-25] MEDS: MODAFINIL 100 MG TABLET (PROVIGIL) GT SCH (09:56)
[2022-02-25] MEDS: levETIRAcetam 500 MG TABLET GT SCH ×2 (09:56→21:00)
[2022-02-25] MEDS: QUEtiapine FUMARATE 25 MG TABLET PO SCH (09:58)
[2022-02-25] MEDS: NACL 0.9% 1,000 ML IV SCH (09:59)
[2022-02-25 12:39] VITALS: BP_SYST 115
[2022-02-25 16:18] VITALS: BP_SYST 123
[2022-02-26 00:11] VITALS: BP_SYST 123
[2022-02-26] MEDS: PANTOPRAZOLE SODIUM 40 MG/VIAL (PROTONIX) IVP SCH ×2 (11:51→21:00)
[2022-02-26] MEDS: MODAFINIL 100 MG TABLET (PROVIGIL) GT SCH (11:52)
[2022-02-26] MEDS: ASPIRIN 81 MG TAB.CHEW GT SCH (11:52)
[2022-02-26] MEDS: levETIRAcetam 500 MG TABLET GT SCH ×2 (11:53→21:56)
[2022-02-26 12:00] VITALS: BP_SYST 114
[2022-02-26] MEDS: ATORVASTATIN 20 MG TABLET GT SCH (12:00)
[2022-02-26] MEDS: CARVEDILOL 12.5 MG TABLET (COREG) GT SCH ×2 (12:00→21:56)
[2022-02-26] MEDS: NACL 0.9% 1,000 ML IV SCH ×2 (13:00→21:00)
[2022-02-26 16:52] VITALS: BP_SYST 117
[2022-02-26 20:00] VITALS: BP_SYST 127
[2022-02-27 01:08] VITALS: BP_SYST 124
[2022-02-27] MEDS: PANTOPRAZOLE SODIUM 40 MG/VIAL (PROTONIX) IVP SCH ×2 (10:17→10:26)
[2022-02-27] MEDS: MODAFINIL 100 MG TABLET (PROVIGIL) GT SCH (10:18)
[2022-02-27] MEDS: ATORVASTATIN 20 MG TABLET GT SCH (10:19)
[2022-02-27] MEDS: levETIRAcetam 500 MG TABLET GT SCH ×2 (10:19→21:53)
[2022-02-27] MEDS: ASPIRIN 81 MG TAB.CHEW GT SCH (10:19)
[2022-02-27] MEDS: CARVEDILOL 12.5 MG TABLET (COREG) GT SCH ×2 (10:22→21:54)
[2022-02-27 10:37] VITALS: BP_SYST 109
[2022-02-27 13:00] VITALS: BP_SYST 118
[2022-02-27] MEDS ORDERED: GASTROGRAFIN 120 ML ONE (16:37)
[2022-02-27 16:46] VITALS: BP_SYST 115
[2022-02-27] MEDS: NACL 0.9% 1,000 ML IV SCH (18:00)
[2022-02-27 20:00] VITALS: BP_SYST 119
[2022-02-28 00:38] VITALS: BP_SYST 97
[2022-02-28 08:00] VITALS: BP_SYST 103
[2022-02-28] MEDS: CARVEDILOL 12.5 MG TABLET (COREG) GT SCH ×2 (08:35→22:30)
[2022-02-28] MEDS: ASPIRIN 81 MG TAB.CHEW GT SCH (08:35)
[2022-02-28] MEDS: PANTOPRAZOLE SODIUM 40 MG/VIAL (PROTONIX) IVP SCH ×3 (08:35→22:31)
[2022-02-28] MEDS: MODAFINIL 100 MG TABLET (PROVIGIL) GT SCH (08:36)
[2022-02-28] MEDS: levETIRAcetam 500 MG TABLET GT SCH ×2 (08:36→22:29)
[2022-02-28] MEDS: ATORVASTATIN 20 MG TABLET GT SCH (08:36)
[2022-02-28 12:00] VITALS: BP_SYST 101
[2022-02-28 16:25] VITALS: BP_SYST 102
[2022-02-28 20:00] VITALS: BP_SYST 118
[2022-03-01 00:53] VITALS: BP_SYST 107
[2022-03-01 08:00] VITALS: BP_SYST 109
[2022-03-01] MEDS: PANTOPRAZOLE SODIUM 40 MG/VIAL (PROTONIX) IVP SCH ×2 (11:07→21:54)
[2022-03-01] MEDS: levETIRAcetam 500 MG TABLET GT SCH ×2 (11:08→21:55)
[2022-03-01] MEDS: CARVEDILOL 12.5 MG TABLET (COREG) GT SCH ×2 (11:08→21:00)
[2022-03-01] MEDS: ASPIRIN 81 MG TAB.CHEW GT SCH (11:08)
[2022-03-01] MEDS: ATORVASTATIN 20 MG TABLET GT SCH (11:08)
[2022-03-01] MEDS: MODAFINIL 100 MG TABLET (PROVIGIL) GT SCH (11:08)
[2022-03-01 12:00] VITALS: BP_SYST 110
[2022-03-01 16:00] VITALS: BP_SYST 115
[2022-03-01 20:02] VITALS: BP_SYST 93
[2022-03-02] VITALS (7 sets, daily range): BP systolic 122–140
[2022-03-02] MEDS: ASPIRIN 81 MG TAB.CHEW GT SCH (10:08)
[2022-03-02] MEDS: SCOPOLAMINE HYDROBROMIDE 1 MG PATCH .72 H (TRANSDERM-SCOP) TD SCH ×2 (10:08→10:30)
[2022-03-02] MEDS: MODAFINIL 100 MG TABLET (PROVIGIL) GT SCH (10:08)
[2022-03-02] MEDS: ATORVASTATIN 20 MG TABLET GT SCH (10:08)
[2022-03-02] MEDS: CARVEDILOL 12.5 MG TABLET (COREG) GT SCH ×2 (10:09→21:52)
[2022-03-02] MEDS: PANTOPRAZOLE SODIUM 40 MG/VIAL (PROTONIX) IVP SCH (10:30)
[2022-03-02] MEDS: levETIRAcetam 500 MG TABLET GT SCH (10:30)
[2022-03-02] MEDS ORDERED: levETIRAcetam 500 MG TABLET GT ONE (21:30)
[2022-03-02] MEDS ORDERED: PANTOPRAZOLE SODIUM 40 MG/VIAL (PROTONIX) IVP ONE (21:30)
[2022-03-03 00:50] VITALS: BP_SYST 121
[2022-03-03 08:00] VITALS: BP_SYST 114
[2022-03-03] MEDS: MODAFINIL 100 MG TABLET (PROVIGIL) GT SCH (09:16)
[2022-03-03] MEDS: levETIRAcetam 500 MG TABLET GT SCH ×2 (09:16→20:35)
[2022-03-03] MEDS: ATORVASTATIN 20 MG TABLET GT SCH (09:17)
[2022-03-03] MEDS: CARVEDILOL 12.5 MG TABLET (COREG) GT SCH ×2 (09:17→20:35)
[2022-03-03] MEDS: ASPIRIN 81 MG TAB.CHEW GT SCH (09:17)
[2022-03-03] MEDS: PANTOPRAZOLE SODIUM 40 MG/VIAL (PROTONIX) IVP SCH ×2 (09:19→20:34)
[2022-03-03 11:30] VITALS: BP_SYST 106
[2022-03-03 15:54] VITALS: BP_SYST 110
[2022-03-03 20:00] VITALS: BP_SYST 115
[2022-03-04 01:07] VITALS: BP_SYST 113
[2022-03-04 08:00] VITALS: BP_SYST 93
[2022-03-04] MEDS: MODAFINIL 100 MG TABLET (PROVIGIL) GT SCH (08:38)
[2022-03-04] MEDS: ATORVASTATIN 20 MG TABLET GT SCH (08:38)
[2022-03-04] MEDS: ASPIRIN 81 MG TAB.CHEW GT SCH (08:39)
[2022-03-04] MEDS: levETIRAcetam 500 MG TABLET GT SCH ×2 (08:39→22:07)
[2022-03-04] MEDS: PANTOPRAZOLE SODIUM 40 MG/VIAL (PROTONIX) IVP SCH ×2 (08:42→22:07)
[2022-03-04] MEDS: CARVEDILOL 12.5 MG TABLET (COREG) GT SCH ×2 (09:00→22:06)
[2022-03-04 12:03] VITALS: BP_SYST 104
[2022-03-04 16:10] VITALS: BP_SYST 115
[2022-03-04 19:00] VITALS: BP_SYST 119
[2022-03-04 20:00] VITALS: BP_SYST 119; BP_SYST 134
[2022-03-05 00:22] VITALS: BP_SYST 129
[2022-03-05 07:00] VITALS: BP_SYST 129
[2022-03-05] MEDS: CARVEDILOL 12.5 MG TABLET (COREG) GT SCH ×2 (09:00→23:05)
[2022-03-05] MEDS: MODAFINIL 100 MG TABLET (PROVIGIL) GT SCH (10:13)
[2022-03-05] MEDS: levETIRAcetam 500 MG TABLET GT SCH ×2 (10:13→22:59)
[2022-03-05] MEDS: ASPIRIN 81 MG TAB.CHEW GT SCH (10:14)
[2022-03-05] MEDS: PANTOPRAZOLE SODIUM 40 MG/VIAL (PROTONIX) IVP SCH ×2 (10:15→22:58)
[2022-03-05] MEDS: ATORVASTATIN 20 MG TABLET GT SCH (10:15)
[2022-03-05] MEDS: SCOPOLAMINE HYDROBROMIDE 1 MG PATCH .72 H (TRANSDERM-SCOP) TD SCH (10:16)
[2022-03-05 12:48] VITALS: BP_SYST 128
[2022-03-05] MEDS: cefTRIAXone 1 GM in D5W 50 ML IV SCH (17:30)
[2022-03-05 18:14] VITALS: BP_SYST 109
[2022-03-05] MEDS: metroNIDAZOLE 500 MG TABLET PO SCH (22:59)
[2022-03-06 00:15] VITALS: BP_SYST 100
[2022-03-06 08:25] VITALS: BP_SYST 107
[2022-03-06 08:26] LABS: ALBUMIN 1.2 g/dL (3.4-4.8); CALCIUM 8.4 mg/dL (8.4-11.0); CREATININE 1.5 mg/dL (0.55-1.30); POTASSIUM 4.1 mmol/L (3.5-5.1); TOTAL BILIRUBIN 0.3 mg/dL (0.0-1.0)
[2022-03-06 08:38] LABS: HEMATOCRIT 25.5 % (36-54); MEAN CORPUSCULAR HEMOGLOBIN 26 pg (27-31); MEAN CORPUSCULAR HGB CONC 32 % (32-36); MEAN CORPUSCULAR VOLUME 81 fL (79.0-98.0); PLATELET COUNT (AUTO) 471 K/uL (130-430); RED BLOOD CELL COUNT(AUTO) 3.14 MIL/uL (4.2-6.2); RED CELL DISTRIBUTION WIDTH 15.3 % (9.0-15.0); WHITE BLOOD COUNT (AUTO) 26.4 K/uL (4.8-10.8)
[2022-03-06] MEDS: ASPIRIN 81 MG TAB.CHEW GT SCH (09:40)
[2022-03-06] MEDS: metroNIDAZOLE 500 MG TABLET PO SCH ×2 (09:40→22:06)
[2022-03-06] MEDS: levETIRAcetam 500 MG TABLET GT SCH ×2 (09:41→22:06)
[2022-03-06] MEDS: ATORVASTATIN 20 MG TABLET GT SCH (09:41)
[2022-03-06] MEDS: MODAFINIL 100 MG TABLET (PROVIGIL) GT SCH (09:45)
[2022-03-06] MEDS: PANTOPRAZOLE SODIUM 40 MG/VIAL (PROTONIX) IVP SCH ×2 (09:46→22:10)
[2022-03-06] MEDS: CARVEDILOL 12.5 MG TABLET (COREG) GT SCH ×2 (09:48→22:09)
[2022-03-06 11:25] LABS: BAND % (MANUAL) 4 % (0-6); BASOPHILS % (MANUAL) 0 % (0-2); EOSINOPHILS % (MANUAL) 1 % (0-7); LYMPHOCYTES % (MANUAL) 3 % (20-46); MONOCYTES % (MANUAL) 5 % (0-11)
[2022-03-06 16:25] VITALS: BP_SYST 110
[2022-03-06] MEDS: cefTRIAXone 1 GM in D5W 50 ML IV SCH (18:01)
[2022-03-06] MEDS: VANCOMYCIN HCL 1,000 MG in NS 250 ML IV SCH (18:31)
[2022-03-06 22:01] VITALS: BP_SYST 109
[2022-03-07 00:23] VITALS: BP_SYST 98
[2022-03-07] MEDS: VANCOMYCIN HCL 1,000 MG in NS 250 ML IV SCH ×2 (05:29→18:54)
[2022-03-07 08:00] VITALS: BP_SYST 100
[2022-03-07 08:19] LABS: BASOPHILS # (AUTO) 0.1 K/uL (0.0-0.2); BASOPHILS % (AUTO) 0.2 % (0.0-2.0); EOSINOPHILS # (AUTO) 0.2 K/uL (0.0-0.4); EOSINOPHILS % (AUTO) 0.6 % (0.0-4.0); HEMATOCRIT 24.4 % (36-54); HEMOGLOBIN 7.7 g/dL (14.0-18.0); LYMPHOCYTES # (AUTO) 1.4 K/uL (1.0-5.5); LYMPHOCYTES % (AUTO) 5.7 % (20.5-51.5); MEAN CORPUSCULAR HEMOGLOBIN 26 pg (27-31); MEAN CORPUSCULAR HGB CONC 32 % (32-36); MEAN CORPUSCULAR VOLUME 81 fL (79.0-98.0); MONOCYTES # (AUTO) 1.3 K/uL (0.0-1.0); NEUTROPHILS # (AUTO) 22.4 K/uL (1.8-7.7); PLATELET COUNT (AUTO) 456 K/uL (130-430); RED BLOOD CELL COUNT(AUTO) 3.02 MIL/uL (4.2-6.2); RED CELL DISTRIBUTION WIDTH 15.2 % (9.0-15.0); WHITE BLOOD COUNT (AUTO) 25.3 K/uL (4.8-10.8)
[2022-03-07 08:53] LABS: ALBUMIN 1.1 g/dL (3.4-4.8); CALCIUM 8.6 mg/dL (8.4-11.0); CREATININE 1.62 mg/dL (0.55-1.30); POTASSIUM 4.1 mmol/L (3.5-5.1); TOTAL BILIRUBIN 0.2 mg/dL (0.0-1.0)
[2022-03-07] MEDS ORDERED: D5W 1,000 ML IV PRN (10:00)
[2022-03-07] MEDS ORDERED: DEXTROSE 50% JECT 50 ML DISP.SYRIN IVP PRN (10:00)
[2022-03-07] MEDS ORDERED: GLUCOSE (DEXTROSE) ORAL GEL -Adults PO PRN (10:00)
[2022-03-07] MEDS: MODAFINIL 100 MG TABLET (PROVIGIL) GT SCH (10:19)
[2022-03-07] MEDS: metroNIDAZOLE 500 MG TABLET PO SCH ×2 (10:19→22:35)
[2022-03-07] MEDS: levETIRAcetam 500 MG TABLET GT SCH ×2 (10:20→22:34)
[2022-03-07] MEDS: ASPIRIN 81 MG TAB.CHEW GT SCH (10:21)
[2022-03-07] MEDS: ATORVASTATIN 20 MG TABLET GT SCH (10:21)
[2022-03-07] MEDS: PANTOPRAZOLE SODIUM 40 MG/VIAL (PROTONIX) IVP SCH ×2 (10:22→22:35)
[2022-03-07 10:24] LABS: NEUTROPHILS % (AUTO) 88.5 % (40.0-70.0)
[2022-03-07] MEDS: CARVEDILOL 12.5 MG TABLET (COREG) GT SCH ×2 (10:27→21:00)
[2022-03-07] MEDS: 0.45% NACL 1,000 ML IV SCH ×2 (10:40→22:45)
[2022-03-07] MEDS: INSULIN REGULAR, HUMAN 100 UNITS/ML, 10 ML VIAL (humuLIN R) SUBCUT PRN ×3 (11:01→23:11)
[2022-03-07 11:44] VITALS: BP_SYST 97
[2022-03-07 12:00] VITALS: BP_SYST 97
[2022-03-07 16:50] VITALS: BP_SYST 99
[2022-03-07] MEDS: cefTRIAXone 1 GM in D5W 50 ML IV SCH (17:41)
[2022-03-08] VITALS (32 sets, daily range): BP systolic 41–173
[2022-03-08] MEDS: VANCOMYCIN HCL 1,000 MG in NS 250 ML IV SCH (05:44)
[2022-03-08 07:02] LABS: BASOPHILS # (AUTO) 0.2 K/uL (0.0-0.2); BASOPHILS % (AUTO) 0.7 % (0.0-2.0); EOSINOPHILS # (AUTO) 0.2 K/uL (0.0-0.4); EOSINOPHILS % (AUTO) 0.9 % (0.0-4.0); HEMATOCRIT 24.9 % (36-54); HEMOGLOBIN 7.6 g/dL (14.0-18.0); LYMPHOCYTES # (AUTO) 2.3 K/uL (1.0-5.5); LYMPHOCYTES % (AUTO) 9.4 % (20.5-51.5); MEAN CORPUSCULAR HEMOGLOBIN 25 pg (27-31); MEAN CORPUSCULAR HGB CONC 31 % (32-36); MEAN CORPUSCULAR VOLUME 82 fL (79.0-98.0); MONOCYTES % (AUTO) 4.1 % (1.7-9.3); NEUTROPHILS # (AUTO) 20.7 K/uL (1.8-7.7); NEUTROPHILS % (AUTO) 84.9 % (40.0-70.0); PLATELET COUNT (AUTO) 448 K/uL (130-430); RED BLOOD CELL COUNT(AUTO) 3.02 MIL/uL (4.2-6.2); RED CELL DISTRIBUTION WIDTH 15.3 % (9.0-15.0); WHITE BLOOD COUNT (AUTO) 24.4 K/uL (4.8-10.8)
[2022-03-08] MEDS: INSULIN REGULAR, HUMAN 100 UNITS/ML, 10 ML VIAL (humuLIN R) SUBCUT PRN ×2 (07:47→22:42)
[2022-03-08] MEDS ORDERED: NS IV ONE ×3 (08:00→09:00)
[2022-03-08] MEDS ORDERED: NOREPINEPHRINE BITARTRATE 4 MG in NS 250 ML IV ONE (08:00)
[2022-03-08] MEDS ORDERED: EPINEPHRINE HCL IV ONE ×2 (08:00→09:00)
[2022-03-08 08:09] LABS: CALCIUM 8.5 mg/dL (8.4-11.0); CREATININE 2.02 mg/dL (0.55-1.30); POTASSIUM 4.7 mmol/L (3.5-5.1)
[2022-03-08] MEDS ORDERED: EPINEPHrine HCL 10 MG in NS 240 ML IV PRN (08:30)
[2022-03-08] MEDS ORDERED: NOREPINEPHRINE BITARTRATE 16 MG in D5W 234 ML IV PRN (08:30)
[2022-03-08] MEDS: CARVEDILOL 12.5 MG TABLET (COREG) GT SCH ×2 (08:53→21:00)
[2022-03-08] MEDS: PANTOPRAZOLE SODIUM 40 MG/VIAL (PROTONIX) IVP SCH ×2 (08:53→21:48)
[2022-03-08] MEDS: MODAFINIL 100 MG TABLET (PROVIGIL) GT SCH (08:53)
[2022-03-08] MEDS: SCOPOLAMINE HYDROBROMIDE 1 MG PATCH .72 H (TRANSDERM-SCOP) TD SCH (08:53)
[2022-03-08] MEDS: ASPIRIN 81 MG TAB.CHEW GT SCH (08:53)
[2022-03-08] MEDS: ATORVASTATIN 20 MG TABLET GT SCH (08:54)
[2022-03-08] MEDS ORDERED: NOREPINEPHRINE BITARTRATE IV ONE (09:00)
[2022-03-08] MEDS: metroNIDAZOLE 500 MG TABLET PO SCH (09:00)
[2022-03-08] MEDS: levETIRAcetam 500 MG TABLET GT SCH ×2 (09:00→21:49)
[2022-03-08 09:25] LABS: BASOPHILS # (AUTO) 0.1 K/uL (0.0-0.2); BASOPHILS % (AUTO) 0.5 % (0.0-2.0); EOSINOPHILS # (AUTO) 0.2 K/uL (0.0-0.4); EOSINOPHILS % (AUTO) 0.8 % (0.0-4.0); HEMOGLOBIN 7.7 g/dL (14.0-18.0); LYMPHOCYTES # (AUTO) 2.4 K/uL (1.0-5.5); LYMPHOCYTES % (AUTO) 10.7 % (20.5-51.5); MEAN CORPUSCULAR HEMOGLOBIN 25 pg (27-31); MEAN CORPUSCULAR HGB CONC 29 % (32-36); MEAN CORPUSCULAR VOLUME 85 fL (79.0-98.0); MONOCYTES # (AUTO) 0.4 K/uL (0.0-1.0); NEUTROPHILS # (AUTO) 19.2 K/uL (1.8-7.7); PLATELET COUNT (AUTO) 502 K/uL (130-430); RED BLOOD CELL COUNT(AUTO) 3.05 MIL/uL (4.2-6.2); RED CELL DISTRIBUTION WIDTH 15.9 % (9.0-15.0); WHITE BLOOD COUNT (AUTO) 22.3 K/uL (4.8-10.8)
[2022-03-08 09:38] LABS: CALCIUM 8.4 mg/dL (8.4-11.0); CREATININE 2.29 mg/dL (0.55-1.30); POTASSIUM 5.4 mmol/L (3.5-5.1)
[2022-03-08 09:40] LABS: ALBUMIN 0.9 g/dL (3.4-4.8); TOTAL BILIRUBIN 0.5 mg/dL (0.0-1.0)
[2022-03-08] MEDS ORDERED: SODIUM BICARBONATE 8.4% JECT 50 MEQ/50 ML SYRINGE IVP ONE ×2 (09:45→11:00)
[2022-03-08] MEDS ORDERED: SODIUM BICARBONATE 8.4% JECT 150 MEQ in D5W 1,000 ML IVP SCH (09:45)
[2022-03-08] MEDS ORDERED: EPINEPHrine JECT 0.1 MG/ML SYR IVP ONE (11:00)
[2022-03-08] MEDS ORDERED: NORMAL SALINE 10 ML VIAL IVP ONE (11:00)
[2022-03-08] MEDS ORDERED: ATROPINE SULFATE 1 MG/10 ML SYRINGE IVP ONE (11:00)
[2022-03-08] MEDS: D5W 1,000 ML IV SCH ×2 (11:30→20:30)
[2022-03-08] MEDS ORDERED: VASOPRESSIN 40 UNITS in NS 38 ML IV PRN (12:45)
[2022-03-08] MEDS ORDERED: CEFEPIME 1 GM in D5W 50 ML IV SCH (13:00)
[2022-03-08] MEDS: metroNIDAZOLE 500 mg/NS 100 ML IV SCH ×2 (14:25→21:51)
[2022-03-08] MEDS: EPINEPHrine HCL 10 MG in NS 240 ML IV PRN ×3 (16:28→20:36)
[2022-03-08] MEDS: NOREPINEPHRINE BITARTRATE 16 MG in D5W 234 ML IV PRN ×2 (16:29→20:34)
[2022-03-08] MEDS: PHENYLEPHRINE HCL 100 MG in NS 240 ML IV PRN ×2 (16:29→20:33)
[2022-03-08] MEDS: CEFEPIME 1 GM in D5W 50 ML IV SCH (21:49)
[2022-03-08] MEDS: LINEZOLID 300 ML IV SCH (21:51)
[2022-03-08] MEDS: ACETAMINOPHEN 650 MG/20.3 ML UDC GT PRN (21:53)
[2022-03-09] VITALS (54 sets, daily range): BP systolic 76–143
[2022-03-09 00:17] LABS: BASOPHILS # (AUTO) 0.2 K/uL (0.0-0.2); HEMATOCRIT 24.2 % (36-54); HEMOGLOBIN 7.6 g/dL (14.0-18.0); LYMPHOCYTES # (AUTO) 0.8 K/uL (1.0-5.5); LYMPHOCYTES % (AUTO) 3.4 % (20.5-51.5); MEAN CORPUSCULAR HEMOGLOBIN 25 pg (27-31); MEAN CORPUSCULAR HGB CONC 31 % (32-36); MEAN CORPUSCULAR VOLUME 81 fL (79.0-98.0); MONOCYTES # (AUTO) 0.3 K/uL (0.0-1.0); MONOCYTES % (AUTO) 1.3 % (1.7-9.3); NEUTROPHILS # (AUTO) 22.8 K/uL (1.8-7.7); NEUTROPHILS % (AUTO) 94.3 % (40.0-70.0); PLATELET COUNT (AUTO) 295 K/uL (130-430); RED CELL DISTRIBUTION WIDTH 15.6 % (9.0-15.0); WHITE BLOOD COUNT (AUTO) 24.1 K/uL (4.8-10.8)
[2022-03-09] MEDS: EPINEPHrine HCL 10 MG in NS 240 ML IV PRN ×3 (00:18→11:49)
[2022-03-09 00:33] LABS: POTASSIUM 4.2 mmol/L (3.5-5.1)
[2022-03-09] MEDS ORDERED: NOREPINEPHRINE 4 MG/4 ML VIAL IV ONE ×2 (00:37→04:23)
[2022-03-09 00:42] LABS: CREATININE 3.88 mg/dL (0.55-1.30)
[2022-03-09 00:50] LABS: ALBUMIN 0.9 g/dL (3.4-4.8); PHOSPHORUS 4.1 mg/dL (2.7-4.5); TOTAL BILIRUBIN 0.6 mg/dL (0.0-1.0)
[2022-03-09] MEDS ORDERED: EPINEPHrine HCL 1 MG/ML VIAL ONE ×3 (00:50→01:00)
[2022-03-09 00:54] LABS: CALCIUM 6.9 mg/dL (8.4-11.0)
[2022-03-09] MEDS: NOREPINEPHRINE BITARTRATE 16 MG in D5W 234 ML IV PRN ×2 (01:43→04:31)
[2022-03-09] MEDS ORDERED: CALCIUM GLUCONATE 1 GM/10 ML VIAL ONE (02:05)
[2022-03-09] MEDS ORDERED: CALCIUM GLUCONATE 1 GM in NS 100 ML IV ONE (02:15)
[2022-03-09] MEDS: INSULIN REGULAR, HUMAN 100 UNITS/ML, 10 ML VIAL (humuLIN R) SUBCUT PRN ×4 (04:40→23:20)
[2022-03-09] MEDS: metroNIDAZOLE 500 mg/NS 100 ML IV SCH ×3 (06:09→21:34)
[2022-03-09 06:14] LABS: BASOPHILS # (AUTO) 0.2 K/uL (0.0-0.2); EOSINOPHILS % (AUTO) 0.2 % (0.0-4.0); LYMPHOCYTES # (AUTO) 2.1 K/uL (1.0-5.5); LYMPHOCYTES % (AUTO) 8.8 % (20.5-51.5); MEAN CORPUSCULAR HEMOGLOBIN 25 pg (27-31); MEAN CORPUSCULAR HGB CONC 31 % (32-36); MEAN CORPUSCULAR VOLUME 81 fL (79.0-98.0); MONOCYTES # (AUTO) 0.5 K/uL (0.0-1.0); MONOCYTES % (AUTO) 1.9 % (1.7-9.3); NEUTROPHILS # (AUTO) 20.7 K/uL (1.8-7.7); NEUTROPHILS % (AUTO) 88.1 % (40.0-70.0); PLATELET COUNT (AUTO) 236 K/uL (130-430); RED CELL DISTRIBUTION WIDTH 15.5 % (9.0-15.0); WHITE BLOOD COUNT (AUTO) 23.5 K/uL (4.8-10.8)
[2022-03-09 06:47] LABS: CREATININE 3.9 mg/dL (0.55-1.30); POTASSIUM 4.1 mmol/L (3.5-5.1)
[2022-03-09] MEDS ORDERED: CALCIUM CHLORIDE 1 GM/10 ML DISP.SYRIN (14 mEq Ca++/SYR) IV ONE (07:12)
[2022-03-09] MEDS ORDERED: EPINEPHrine JECT 0.1 MG/ML SYR IVP ONE (07:12)
[2022-03-09] MEDS ORDERED: INSULIN GLARGINE 100 UNITS/ML 10 ML VIAL SUBCUT SCH (09:00)
[2022-03-09] MEDS: CARVEDILOL 12.5 MG TABLET (COREG) GT SCH ×2 (09:00→21:32)
[2022-03-09] MEDS: D5W 1,000 ML IV SCH (11:24)
[2022-03-09] MEDS: ASPIRIN 81 MG TAB.CHEW GT SCH (11:25)
[2022-03-09] MEDS: ATORVASTATIN 20 MG TABLET GT SCH (11:26)
[2022-03-09] MEDS: levETIRAcetam 500 MG TABLET GT SCH ×2 (11:26→21:43)
[2022-03-09] MEDS: MODAFINIL 100 MG TABLET (PROVIGIL) GT SCH (11:27)
[2022-03-09] MEDS: CEFEPIME 1 GM in D5W 50 ML IV SCH ×2 (11:28→21:38)
[2022-03-09] MEDS: LINEZOLID 300 ML IV SCH ×2 (11:29→21:34)
[2022-03-09] MEDS: PANTOPRAZOLE SODIUM 40 MG/VIAL (PROTONIX) IVP SCH ×2 (11:30→21:35)
[2022-03-09] MEDS: PHENYLEPHRINE HCL 100 MG in NS 240 ML IV PRN ×2 (11:55→23:29)
[2022-03-09] MEDS: NOREPINEPHRINE BITARTRATE 32 MG in D5W 218 ML IV PRN ×3 (11:57→23:26)
[2022-03-09] MEDS: ACETAMINOPHEN 650 MG/20.3 ML UDC GT PRN (21:01)
[2022-03-10] VITALS (12 sets, daily range): BP systolic 104–141
[2022-03-10] MEDS ORDERED: dilTIAZem HCL IVP 5 MG/ML VIAL IVP ONE ×2 (00:30→01:30)
[2022-03-10] MEDS ORDERED: dilTIAZem HCL IVP 5 MG/ML VIAL IVP PRN ×2 (01:30)
[2022-03-10 06:36] LABS: CALCIUM 7.3 mg/dL (8.4-11.0); CREATININE 4.48 mg/dL (0.55-1.30); POTASSIUM 4.1 mmol/L (3.5-5.1)
[2022-03-10] MEDS: metroNIDAZOLE 500 mg/NS 100 ML IV SCH (06:46)
[2022-03-10] MEDS: NOREPINEPHRINE BITARTRATE 32 MG in D5W 218 ML IV PRN (06:50)
[2022-03-10 09:02] LABS: HEMATOCRIT 25.4 % (36-54); HEMOGLOBIN 7.9 g/dL (14.0-18.0); MEAN CORPUSCULAR HEMOGLOBIN 25 pg (27-31); MEAN CORPUSCULAR HGB CONC 31 % (32-36); MEAN CORPUSCULAR VOLUME 81 fL (79.0-98.0); PLATELET COUNT (AUTO) 186 K/uL (130-430); RED BLOOD CELL COUNT(AUTO) 3.14 MIL/uL (4.2-6.2); RED CELL DISTRIBUTION WIDTH 15.5 % (9.0-15.0); WHITE BLOOD COUNT (AUTO) 25.6 K/uL (4.8-10.8)
[2022-03-10 16:15] LABS: BAND % (MANUAL) 5 % (0-6); BASOPHILS % (MANUAL) 0 % (0-2); EOSINOPHILS % (MANUAL) 2 % (0-7); LYMPHOCYTES % (MANUAL) 4 % (20-46); MONOCYTES % (MANUAL) 3 % (0-11)
== END 2022-03-10 12:00 | DRG 689 ==
LOC: SED 14:21 → STU 16:32 → SMU 12-20 22:13 → STU 12-21 23:48 → SMU 12-23 17:53 → STU 02-05 00:45 → SMU 02-05 07:52 → STU 03-08 12:35 → SIC 03-08 13:08
PROVIDERS: ADMIT General Practice; ATTEND General Practice
PROC: 5A12012 Performance of Cardiac Output, Single, Manual (ICD-10-PCS; principal; 2022-03-08)
PROC: 02HV33Z Insertion of Infusion Device into Superior Vena Cava, Percutaneous Approach (ICD-10-PCS; 2022-03-08)
PROC: B548ZZA Ultrasonography of Superior Vena Cava, Guidance (ICD-10-PCS; 2022-03-08)
PROC: 0BH17EZ Insertion of Endotracheal Airway into Trachea, Via Natural or Artificial Opening (ICD-10-PCS; 2022-03-08)
PROC: 5A1945Z Respiratory Ventilation, 24-96 Consecutive Hours (ICD-10-PCS; 2022-03-08)
DX: N39.0 Urinary tract infection, site not specified (principal); J96.00 Acute respiratory failure, unspecified whether with hypoxia or hypercapnia; G93.41 Metabolic encephalopathy; J69.0 Pneumonitis due to inhalation of food and vomit; A41.9 Sepsis, unspecified organism; R65.21 Severe sepsis with septic shock; N17.0 Acute kidney failure with tubular necrosis; E43 Unspecified severe protein-calorie malnutrition; I21.A1 Myocardial infarction type 2; R47.01 Aphasia; I69.351 Hemiplegia and hemiparesis following cerebral infarction affecting right dominant side; E87.1 Hypo-osmolality and hyponatremia; K94.23 Gastrostomy malfunction; I42.0 Dilated cardiomyopathy; D64.9 Anemia, unspecified; I25.10 Atherosclerotic heart disease of native coronary artery without angina pectoris; R13.10 Dysphagia, unspecified; E86.0 Dehydration; I11.0 Hypertensive heart disease with heart failure; I50.9 Heart failure, unspecified; E11.9 Type 2 diabetes mellitus without complications; Z20.822 Contact with and (suspected) exposure to COVID-19; F22 Delusional disorders; B95.62 Methicillin resistant Staphylococcus aureus infection as the cause of diseases classified elsewhere; Z66 Do not resuscitate; I46.9 Cardiac arrest, cause unspecified; Z68.22 Body mass index [BMI] 22.0-22.9, adult; Z79.4 Long term (current) use of insulin; Z79.899 Other long term (current) drug therapy; Z79.82 Long term (current) use of aspirin; Z79.1 Long term (current) use of non-steroidal anti-inflammatories (NSAID)
CPT/HCPCS: 36415; 36600; 70450-TC; 71045; 74018; 76376; 76770; 80048; 80053; 80061; 80202; 80307; 81000; 82803-TC; 82962; 83036; 83605; 83735; 83880; 84100; 84439; 84443; 84484; 85007; 85025; 85027; 85730-TC; 87040; 87070-TC; 87081; 87086; 87186-TC; 87205-TC; 92610-GN; 92950; 93005; 93306; 94002; 94003; 94640; 94760; 97110-GO; 97110-GP; 97112-GO; 97112-GP; 97116-GP; 97530-GO; 97530-GP; 97535-GO; 99285; C9113; G0378; J0171; J0461; J0610; J0692; J0696; J1644; J1815; J2020; J2370; J2405; J3370; J3490; J7050; J7060; Q9963